=== PATIENT | female | born 1970 | race Two or more races ===

== ENCOUNTER 2016-09-15 08:49 | Emergency (ER) | payer SELFPAY ==
[~2016-09-15] VITALS: Ht 167.6 cm; Wt 91.6 kg
[~2016-09-15 08:49] MED LIST: DULO60CA6 PO; METF500T9 PO; METR500T PO; OMEG1CAP38 PO; PANT40TA5 PO
[2016-09-15 09:01] VITALS: BP 150/74
[2016-09-15] MEDS ORDERED: PROMETH/CODEINE 6.25/10MG 5 ML SYRUP. PO ONE (09:15)
[2016-09-15] MEDS ORDERED: IPRATRPIUM/ALBUTEROL 0.5/2.5MG 3 ML NEBU. NEB ONE (09:15)
[2016-09-15] MEDS ORDERED: BENZONATATE 100 MG CAPSULE. PO ONE (09:15)
[2016-09-15] MEDS ORDERED: PREDNISONE 20 MG TABLET PO ONE (09:15)
--- NOTE | 2016-09-15 09:17 | PHYS DOC ---
Past Medical History Past Medical History: Diabetes-Type II, Fibromyalgia Past Surgical History: , Tubal ligation, Other Additional Past Surgical Histo: left ankle fx Alcohol Use: None Drug Use: None Adult General Chief Complaint Chief Complaint: COUGH HPI HPI Patient is a 46 year old female with history of diabetes type 2, fibromyalgia, knee replacement, who presents today with a productive cough for 1 month. Patient denies any chest pain or shortness of breath. Denies any fever. Denies any history of smoking. She states she did have influenza vaccine this season. Patient is Khmer-speaking and interpretation is provided by the registered nurses as well as patient's son PCP Review of Systems Review of Systems Constitutional: See history of present illness Eyes: Denies change in visual acuity, redness, or eye pain [] HENT: Denies nasal congestion or sore throat [] Respiratory: Productive cough Cardiovascular: No additional information not addressed in HPI [] GI: Denies abdominal pain, nausea, vomiting, bloody stools or diarrhea [] : Denies dysuria or hematuria [] Musculoskeletal: Denies back pain or joint pain [] Integument: Denies rash or skin lesions [] Neurologic: Denies headache, focal weakness or sensory changes [] Endocrine: Denies polyuria or polydipsia [] Current Medications Current Medications Current Medications Medications (Trade) Dose Ordered Sig/Sarkis Start Time Stop Time Status Last Admin Dose Admin Albuterol/ Ipratropium (Duoneb) 3 ml 1X ONCE 09/15/16 09:15 09/15/16 09:16 DC 09/15/16 09:42 3 ML Benzonatate (Tessalon Perle) 100 mg 1X ONCE 09/15/16 09:15 09/15/16 09:16 DC 09/15/16 09:22 100 MG Prednisone (Prednisone) 60 mg 1X ONCE 09/15/16 09:15 09/15/16 09:16 DC 09/15/16 09:22 60 MG Promethazine HCl/ Codeine (Phenergan With Codeine) 5 ml 1X ONCE 09/15/16 09:15 09/15/16 09:16 DC 09/15/16 09:22 5 ML Allergies Allergies Allergies Coded Allergies Type Severity Reaction Last Updated Verified No Known Drug Allergies 08/11/13 No Physical Exam Physical Exam Constitutional: Well developed, well nourished, no acute distress, non-toxic appearance. [] HENT: Normocephalic, atraumatic, bilateral external ears normal, oropharynx moist, no oral exudates, nose normal. [] Eyes: PERRLA, EOMI, conjunctiva normal, no discharge. [] Neck: Normal range of motion, no tenderness, supple, no stridor. [] Cardiovascular:Heart rate regular rhythm, no murmur [] Lungs & Thorax: Bilateral breath sounds clear to auscultation, patient is actively coughing in the ED Abdomen: Bowel sounds normal, soft, no tenderness, no masses, no pulsatile masses. [] Skin: Warm, dry, no erythema, no rash. [] Back: No tenderness, no CVA tenderness. [] Extremities: No tenderness, no cyanosis, no clubbing, ROM intact, no edema. [] Neurologic: Alert and oriented X 3, normal motor function, normal sensory function, no focal deficits noted. [] Psychologic: Affect normal, judgement normal, mood normal. [] Current Patient Data Vital Signs Vital Signs Date Time Temp Pulse Resp B/P Pulse Ox O2 Delivery O2 Flow Rate FiO2 09/15/16 09:42 Room Air 09/15/16 09:01 97.9 89 20 98 97.9 EKG EKG [] Radiology/Procedures Radiology/Procedures [] Course & Med Decision Making Course & Med Decision Making Pertinent Labs and Imaging studies reviewed. (See chart for details) Patient is in the ED with complaints of a productive cough intermittently for 1 month. She is not a smoker. She was given a DuoNeb treatment, prednisone, and Tessalon Perles. Her lungs have cleared up in the ED, she is no longer coughing. Chest x-ray interpreted by radiologist is negative for any acute findings, patient's symptoms are probably from acute bronchitis. She was discharged with albuterol inhaler, prednisone for 4 more days, Tessalon Perles and Z-Morales. She is to follow-up with her own PCP in the next 7 days. Dragon Disclaimer Dragon Disclaimer This electronic medical record was generated, in whole or in part, using a voice recognition dictation system. Departure Departure Impression: Primary Impression: Acute bronchitis Disposition: HOME, SELF-CARE Condition: STABLE Referrals: FORREST WILDE DO (PCP) Patient Instructions: Acute Bronchitis Additional Instructions: You were seen for acute bronchitis. Take the prescribed medicines as ordered. Follow-up with your doctor in the next 7 days, come back to the ED at any point symptoms worsen. Scripts Prednisone 50 Mg Tablet1 Tab PO DAILY #5 TAB Prov:MONICA TRACY APRN 09/15/16 Benzonatate (Tessalon Perle)100 Mg Capsule1 Cap PO TID #30 CAP Prov:MONICA TRACY APRN 09/15/16 Albuterol Sulfate (Proair Respiclick)90 Mcg Aer.pow.ba1 Puff IH PRN Q6HRS PRN SHORTNESS OF BREATH #1 INHALER Prov:MONICA TRACY APRN 09/15/16 Azithromycin (Zithromax)250 Mg Tablet1 Pkg PO UD #1 PKG Prov:MONICA TRACY APRN 09/15/16 Problem Qualifiers Primary Impression: Acute bronchitis Bronchitis organism: unspecified organism Qualified Code: J20.9 - Acute bronchitis, unspecified MONICA TRACY APRN Sep 15, 2016 09:17
--- NOTE | 2016-09-15 09:39 | RAD ---
Examination: Single frontal view chest History: History of cough, dizziness Comparison: 08/11/2013 Findings: Low lung volumes and technique accentuate heart size and pulmonary vascularity. There is no acute infiltrate or visualized pneumothorax identified. Impression: No acute cardiopulmonary findings.
[2016-09-15] MEDS ORDERED: PROAIR RESPICL90 MCG IH (10:18)
[2016-09-15] MEDS ORDERED: BENZ100C PO (10:18)
[2016-09-15] MEDS ORDERED: PRED50TA PO (10:18)
[2016-09-15] MEDS ORDERED: AZIT250T PO (10:18)
== END 2016-09-15 10:32 | disposition home or self-care (01) ==
LOC: ER 08:49
DX: J20.9 Acute bronchitis, unspecified (principal); E11.9 Type 2 diabetes mellitus without complications; M79.7 Fibromyalgia
CPT/HCPCS: 71010; 94640; 99284; J7512; J7620

== ENCOUNTER 2018-10-25 08:30 | Emergency (ER) | payer SELFPAY ==
[~2018-10-25] VITALS: Ht 167.6 cm; Wt 93.4 kg
[~2018-10-25 08:30] MED LIST changes: +AZIT250T PO; +BENZ100C PO; +PRED50TA PO; +PROAIR RESPICL90 MCG IH
[2018-10-25 09:06] LABS: BILIRUBIN,URINE NEGATIVE (NEG); CLARITY,URINE CLEAR; COLOR,URINE YELLOW; NITRITE,URINE NEGATIVE (NEG); PROTEIN,URINE NEGATIVE (NEG-TRACE); UROBILINOGEN,URINE 0.2 mg/dL (0.2 mg/dL)
[2018-10-25 09:19] LABS: BACTERIA,URINE 0 /HPF (0-FEW); RBC,URINE 20-40 /HPF (0-2); WBC,URINE 0 /HPF (0-4)
[2018-10-25] MEDS ORDERED: IV NORMAL SALINE 1000ML BAG 1,000 ML IV ONE (09:30)
--- NOTE | 2018-10-25 09:44 | PHYS DOC ---
Past Medical History Past Medical History: Asthma, Depression, Diabetes-Type II, Fibromyalgia, High Cholesterol, Pneumonia Past Surgical History: , Tubal ligation, Other Additional Past Surgical Histo: left ankle fx Alcohol Use: None Drug Use: None Adult General Chief Complaint Chief Complaint: VAGINAL BLEEDING HPI HPI 48-year-old female presents to ER via POV for complaints of heavy vaginal bleeding which is been ongoing for the past couple of months. She reports she was seen by her primary care physician on 09/25/18 and had ultrasound and urinalysis done. She reports ultrasound was reported as normal limits and she did have a UTI which she took a 7 day course of antibiotics for. Patient states she was started on or her vaginal bleeding and discussion was had regarding her symptoms being associated with menopause. Patient states this morning around 4 AM she had large amount of vaginal bleeding which soaked her mattress. She reports she has had chills, abdominal pain, nausea, and intermittent dizziness. Patient denies urinary symptoms. She reports she has passed some large clots this morning. Patient denies any vomiting or diarrhea. Patient states she feels fatigued denying any chest pain, palpitations, or shortness of air. Patient states she did have a shake this morning for breakfast denying vomiting episode after drinking that. Patient states she is scheduled in December to see a golf ball molder but with increased bleeding this morning she came to the ER for further evaluation. He shouldn't states she has had vaginal bleeding since her appointment on 09/25/18 however today the bleeding was significantly increased. She reports history of tubal ligation. She denies smoking or alcohol intake. Review of Systems Review of Systems Constitutional: Denies fever- reports chills and fatigue Eyes: Denies change in visual acuity, redness, or eye pain [] HENT: Denies nasal congestion or sore throat [] Respiratory: Denies cough or shortness of breath [] Cardiovascular: Denies CP/palpitations GI: Denies vomiting, bloody stools or diarrhea. Reports diffuse abd pain with increased pain in mid and rt lower abd. Reports intermittent nausea : Denies dysuria or hematuria. Reports vaginal bleeding w/clots Musculoskeletal: Denies back pain or joint pain [] Integument: Denies rash or skin lesions [] Neurologic: Denies headache, focal weakness or sensory changes. Reports dizziness Endocrine: Denies polyuria or polydipsia [] All other systems were reviewed and found to be within normal limits, except as documented in this note. Current Medications Current Medications Current Medications Medications (Trade) Dose Ordered Sig/Sarkis Start Time Stop Time Status Last Admin Dose Admin Iohexol (Omnipaque 300 Mg/ml) 75 ml 1X ONCE 10/25/18 10:15 10/25/18 10:16 DC 10/25/18 10:20 75 ML Sodium Chloride 1,000 ml @ 1,000 mls/hr 1X ONCE 10/25/18 09:30 10/25/18 10:29 DC 10/25/18 09:40 1,000 MLS/HR Allergies Allergies Allergies Coded Allergies Type Severity Reaction Last Updated Verified No Known Drug Allergies 08/11/13 No Physical Exam Physical Exam Constitutional: Well developed, well nourished, no acute distress, non-toxic appearance. [] HENT: Normocephalic, atraumatic, bilateral external ears normal, oropharynx moist, no oral exudates, nose normal. [] Eyes: Pupils equal, conjunctiva normal, no discharge. [] Neck: Normal range of motion, no tenderness, supple, no stridor. [] Cardiovascular: Tachycardic heart rate regular rhythm, no murmur [] Lungs & Thorax: Bilateral breath sounds clear to auscultation- resp. equal/nonlabored Abdomen: Bowel sounds normal, soft/obese, diffuse tenderness in all abd- no distention/rigidity, no masses, no pulsatile masses. [] Skin: Warm, dry, no erythema, no rash. [] Back: No tenderness, no CVA tenderness. [] Extremities: No tenderness, no cyanosis, no clubbing, ROM intact, no edema. [] Neurologic: Alert and oriented X 3, normal motor function, normal sensory function, no focal deficits noted. [] Psychologic: Affect normal, judgement normal, mood normal. [] Pelvic Exam: Leather Coater present Abdomen: Diffuse tenderness in lower abd- no palp. mass External Genitalia: Normal Skin- no rash/lesions Speculum: Normal vaginal mucosa, darker blood in vaginal vault- cervical os closed- no clots/tissue Bimanual: No adnexal masses; No CMT Current Patient Data Vital Signs Vital Signs Date Time Temp Pulse Resp B/P (MAP) Pulse Ox O2 Delivery O2 Flow Rate FiO2 10/25/18 12:00 88 20 137/73 (94) 97 Room Air 10/25/18 08:45 98.4 98.4 Lab Values Laboratory Tests Test 10/25/18 08:40 10/25/18 08:52 10/25/18 09:25 Urine Collection Type Unknown Urine Color Yellow Urine Clarity Clear Urine pH 6.0 Urine Specific [place] <=1.005 Urine Protein Negative mg/dL (NEG-TRACE) Urine Glucose (UA) Negative mg/dL (NEG) Urine Ketones (Stick) Negative mg/dL (NEG) Urine Blood Large (NEG) Urine Nitrite Negative (NEG) Urine Bilirubin Negative (NEG) Urine Urobilinogen Dipstick 0.2 mg/dL (0.2 mg/dL) Urine Leukocyte Esterase Negative (NEG) Urine RBC 20-40 /HPF (0-2) Urine WBC 0 /HPF (0-4) Urine Bacteria 0 /HPF (0-FEW) POC Urine HCG, Qualitative Hcg negative (Negative) White Blood Count 5.3 x10^3/uL (4.0-11.0) Red Blood Count 4.54 x10^6/uL (3.50-5.40) Hemoglobin 13.7 g/dL (12.0-15.5) Hematocrit 40.3 % (36.0-47.0) Mean Corpuscular Volume 89 fL (79-100) Mean Corpuscular Hemoglobin 30 pg (25-35) Mean Corpuscular Hemoglobin Concent 34 g/dL (31-37) Red Cell Distribution Width 13.7 % (11.5-14.5) Platelet Count 248 x10^3/uL (140-400) Neutrophils (%) (Auto) 72 % (31-73) Lymphocytes (%) (Auto) 19 % (24-48) L Monocytes (%) (Auto) 7 % (0-9) Eosinophils (%) (Auto) 2 % (0-3) Basophils (%) (Auto) 0 % (0-3) Neutrophils # (Auto) 3.8 x10^3uL (1.8-7.7) Lymphocytes # (Auto) 1.0 x10^3/uL (1.0-4.8) Monocytes # (Auto) 0.4 x10^3/uL (0.0-1.1) Eosinophils # (Auto) 0.1 x10^3/uL (0.0-0.7) Basophils # (Auto) 0.0 x10^3/uL (0.0-0.2) Sodium Level 133 mmol/L (136-145) L Potassium Level 4.3 mmol/L (3.5-5.1) Chloride Level 101 mmol/L (98-107) Carbon Dioxide Level 19 mmol/L (21-32) L Anion Gap 13 (6-14) Blood Urea Nitrogen 18 mg/dL (7-20) Creatinine 0.6 mg/dL (0.6-1.0) Estimated GFR (Cockcroft-Gault) 106.7 BUN/Creatinine Ratio 30 (6-20) H Glucose Level 171 mg/dL (70-99) H Calcium Level 9.1 mg/dL (8.5-10.1) Magnesium Level 2.3 mg/dL (1.8-2.4) Total Bilirubin 0.5 mg/dL (0.2-1.0) Aspartate Amino Transferase (AST) 28 U/L (15-37) Alanine Aminotransferase (ALT) 34 U/L (14-59) Alkaline Phosphatase 99 U/L (46-116) Troponin I Quantitative < 0.017 ng/mL (0.000-0.055) Total Protein 7.8 g/dL (6.4-8.2) Albumin 3.8 g/dL (3.4-5.0) Albumin/Globulin Ratio 1.0 (1.0-1.7) Laboratory Tests 10/25/18 09:25 Laboratory Tests 10/25/18 09:25 EKG EKG EKG obtained 10/25/18 at [address] Rowe Sinus rhythm Rt axis deviation Rate 94 No STEMI Radiology/Procedures Radiology/Procedures PROCEDURE: CT ABD PELV W/ IV CONTRST ONLY CT ABD PELV W/ IV CONTRST ONLY Indication: ABD RODGERS VAGINAL BLEEDING INJ 75ML OMNI 300 PREV SENT Exposure: One or more of the following individualized dose reduction techniques were utilized for this examination: 1. Automated exposure control 2. Adjustment of the mA and/or kV according to patient size 3. Use of iterative reconstruction technique. Technique: Intravenous contrast was given. No oral contrast per request. Comparison with July 17, 2015 FINDINGS: Lung bases are clear. Liver is hypodense compatible with steatosis. Spleen not enlarged. Pancreas unremarkable. No adrenal mass. Kidneys demonstrate symmetric enhancement without focal mass or hydronephrosis. No calcified gallstone. No aortic aneurysm. No significant lymph node enlargement. No significant small bowel distention. No evidence of acute colitis. Appendix appears normal. No evidence of pelvic mass. Urinary bladder demonstrates no significant definite wall thickening. Vertebral body height and alignment are intact with very mild degenerative spurring. Slight scoliosis. IMPRESSION: 1. Hepatic steatosis. 2. No acute findings in the abdomen or pelvis. Electronically signed by: Gregg Fernandez MD (10/25/2018 10:36 AM) [id number] DICTATED and SIGNED BY: GREGG FERNANDEZ MD DATE: 10/25/18 1036 Course & Med Decision Making Course & Med Decision Making Pertinent Labs and Imaging studies reviewed. (See chart for details) 1115: Discussed patient's test results with her via translation phone- H&H stable at 13.7/40.3 EKG with no acute ST elevation/STEMI and troponin <0.017; UA lg blood/neg nitrates and leuks- neg. UCG. Patient reports following IV fluids her symptoms have improved. At this time patient is nontoxic in appearance and in no visible distress heart rate has improved to 93 with blood pressure 147/76. Discussed with improved symptoms and stable labs plans were for home discharge with patient to continue prescribed medications as directed and will prescribe Naproxen for pain/bleeding. She is comfortable with home discharge plan as dis cussed. Advised patient to follow-up with her primary care physician with concerns and attempt to get earlier appointment with golf ball molder . Education provided on signs and symptoms to return to ER for. Patient denies any increase in vaginal bleeding since arriving to ER. Dragon Disclaimer Dragon Disclaimer This electronic medical record was generated, in whole or in part, using a voice recognition dictation system. Departure Departure Impression: Primary Impression: Abdominal pain Additional Impression: Menorrhagia Disposition: HOME, SELF-CARE Condition: STABLE Referrals: FORREST WILDE DO (PCP) Patient Instructions: Abdominal Pain, Menorrhagia Additional Instructions: Drink plenty of fluids daily. Continue medications as prescribed. You can try and get earlier appointment with your golf ball molder. If you are having excessive vaginal bleeding or abdominal pain you can take the prescribed naproxen as directed. You can also follow-up with your primary care physician for reevaluation with concerns or worsening symptoms. Scripts Naproxen (NAPROXEN) 500 Mg Tablet 1 TAB PO BID PRN for PAIN, #20 TAB 0 Refills Prov: VADIM VALENTINE APRN 10/25/18 Problem Qualifiers VADIM VALENTINE APRN Oct 25, 2018 09:44
[2018-10-25 09:50] LABS: BASO % 0 % (0-3); EOS # 0.1 x10^3/uL (0.0-0.7); EOS % 2 % (0-3); HEMATOCRIT 40.3 % (36.0-47.0); HEMOGLOBIN 13.7 g/dL (12.0-15.5); LYMPH % 19 % (24-48); MEAN CORPUSCULAR HEMOGLOBIN 30 pg (25-35); MEAN CORPUSCULAR HGB CONC 34 g/dL (31-37); MEAN CORPUSCULAR VOLUME 89 fL (79-100); MONO # 0.4 x10^3/uL (0.0-1.1); MONO % 7 % (0-9); NEUT # 3.8 x10^3uL (1.8-7.7); NEUT % 72 % (31-73); PLATELET COUNT 248 x10^3/uL (140-400); RED BLOOD COUNT 4.54 x10^6/uL (3.50-5.40); RED CELL DISTRIBUTION WIDTH 13.7 % (11.5-14.5); WHITE BLOOD COUNT 5.3 x10^3/uL (4.0-11.0)
[2018-10-25 09:55] LABS: CALCIUM 9.1 mg/dL (8.5-10.1); CREATININE 0.6 mg/dL (0.6-1.0); GFR 106.7; POTASSIUM 4.3 mmol/L (3.5-5.1)
[2018-10-25 10:01] LABS: ALBUMIN 3.8 g/dL (3.4-5.0); MAGNESIUM 2.3 mg/dL (1.8-2.4); TOTAL BILIRUBIN 0.5 mg/dL (0.2-1.0); TOTAL PROTEIN 7.8 g/dL (6.4-8.2)
[2018-10-25] MEDS ORDERED: IOHEXOL 300 MG/ML 100ML VIAL. IV ONE (10:15)
--- NOTE | 2018-10-25 10:39 | RAD ---
CT ABD PELV W/ IV CONTRST ONLY Indication: ABD RODGERS VAGINAL BLEEDING INJ 75ML OMNI 300 PREV SENT Exposure: One or more of the following individualized dose reduction techniques were utilized for this examination: 1. Automated exposure control 2. Adjustment of the mA and/or kV according to patient size 3. Use of iterative reconstruction technique. Technique: Intravenous contrast was given. No oral contrast per request. Comparison with July 17, 2015 FINDINGS: Lung bases are clear. Liver is hypodense compatible with steatosis. Spleen not enlarged. Pancreas unremarkable. No adrenal mass. Kidneys demonstrate symmetric enhancement without focal mass or hydronephrosis. No calcified gallstone. No aortic aneurysm. No significant lymph node enlargement. No significant small bowel distention. No evidence of acute colitis. Appendix appears normal. No evidence of pelvic mass. Urinary bladder demonstrates no significant definite wall thickening. Vertebral body height and alignment are intact with very mild degenerative spurring. Slight scoliosis. IMPRESSION: 1. Hepatic steatosis. 2. No acute findings in the abdomen or pelvis. Electronically signed by: Gregg Fernandez MD (10/25/2018 10:36 AM) [facility]
--- NOTE | 2018-10-25 10:56 | EKG ---
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
[2018-10-25] MEDS ORDERED: NAPR-514 PO (11:32)
[2018-10-25 12:00] VITALS: BP 137/73
[2018-10-29 14:15] LABS: GC PROBE Negative (Negative)
== END 2018-10-25 12:08 | disposition home or self-care (01) ==
LOC: ER 08:30
DX: N92.0 Excessive and frequent menstruation with regular cycle (principal); R10.84 Generalized abdominal pain; R11.0 Nausea; R00.0 Tachycardia, unspecified; R42 Dizziness and giddiness; R53.83 Other fatigue; F41.9 Anxiety disorder, unspecified; F32.9 Major depressive disorder, single episode, unspecified; E11.9 Type 2 diabetes mellitus without complications; E78.00 Pure hypercholesterolemia, unspecified; Z98.890 Other specified postprocedural states; Z98.51 Tubal ligation status
CPT/HCPCS: 36415; 74177; 80053; 81001; 81025; 83735; 84484; 85025; 87491; 87591; 93005; 96360; 99285; J7030; Q9967; 99284

== ENCOUNTER 2019-07-20 09:11 | Emergency (ER) | payer SELFPAY ==
[~2019-07-20] VITALS: Ht 167.6 cm; Wt 77.1 kg
[~2019-07-20 09:11] MED LIST changes: +METF500T11 PO; -METF500T9 PO; +NAPR-514 PO; -PANT40TA5 PO; +PANT40TA77 PO
[2019-07-20 09:18] VITALS: BP 132/78
[2019-07-20 09:37] LABS: BILIRUBIN,URINE NEGATIVE (NEG); CLARITY,URINE CLEAR; COLOR,URINE YELLOW; NITRITE,URINE NEGATIVE (NEG); PH,URINE 7.5; PROTEIN,URINE NEGATIVE (NEG-TRACE); UROBILINOGEN,URINE 0.2 mg/dL (0.2 mg/dL)
--- NOTE | 2019-07-20 09:46 | PHYS DOC ---
Past Medical History Past Medical History: Anemia, Asthma, Depression, Diabetes-Type II, Fibro myalgia, High Cholesterol, Hypertension, Pneumonia Past Surgical History: , Tubal ligation, Other Additional Past Surgical Histo: left ankle fx Alcohol Use: None Drug Use: None Adult General Chief Complaint Chief Complaint: PAIN ON URINATION HPI HPI Patient is a 48 year old female who presents with right flank pain in burning with urination for 1 week. She denies fever, nausea, vomiting, abdominal pain, headache, dizziness, CP, SOA. Patient states she's also had a sore throat for the last week. She's been taking Tylenol with her last dose of Tylenol last night. She states she also gets allergy shots. She rates her throat pain a 6 out of 10. Review of Systems Review of Systems HENT: Denies nasal congestion. +sore throat [] : dysuria or denies hematuria [] Musculoskeletal: Right lower back pain or denies joint pain [] All other systems were reviewed and found to be within normal limits, except as documented in this note. Allergies Allergies Allergies Coded Allergies Type Severity Reaction Last Updated Verified No Known Drug Allergies 08/11/13 No Physical Exam Physical Exam Constitutional: Well developed, well nourished, no acute distress, non-toxic appearance. [] HENT: Normocephalic, atraumatic, bilateral external ears normal, oropharynx moist, no oral exudates, nose normal. [] Eyes: PERRLA, EOMI, conjunctiva normal, no discharge. [] Neck: Normal range of motion, no tenderness, supple, no stridor. [] Cardiovascular:Heart rate regular rhythm, no murmur [] Lungs & Thorax: Bilateral breath sounds clear to auscultation [] Abdomen: Bowel sounds normal, soft, no tenderness, no masses, no pulsatile masses. [] Skin: Warm, dry, no erythema, no rash. [] Back: No tenderness, Right CVA tenderness. [] Extremities: No tenderness, no cyanosis, no clubbing, ROM intact, no edema. [] Neurologic: Alert and oriented X 3, normal motor function, normal sensory function, no focal deficits noted. [] Psychologic: Affect normal, judgement normal, mood normal. [] Current Patient Data Vital Signs Vital Signs Date Time Temp Pulse Resp B/P (MAP) Pulse Ox O2 Delivery O2 Flow Rate FiO2 1/18/20 09:18 98.4 76 17 132/78 (96) 99 Room Air 98.4 Lab Values Laboratory Tests Test 07/20/19 09:24 07/20/19 09:25 07/20/19 10:08 POC Urine HCG, Qualitative Hcg negative (Negative) Urine Collection Type Unknown Urine Color Yellow Urine Clarity Clear Urine pH 7.5 Urine Specific [place] <=1.005 Urine Protein Negative mg/dL (NEG-TRACE) Urine Glucose (UA) Negative mg/dL (NEG) Urine Ketones (Stick) Negative mg/dL (NEG) Urine Blood Negative (NEG) Urine Nitrite Negative (NEG) Urine Bilirubin Negative (NEG) Urine Urobilinogen Dipstick 0.2 mg/dL (0.2 mg/dL) Urine Leukocyte Esterase Trace (NEG) Urine RBC 0 /HPF (0-2) Urine WBC 0 /HPF (0-4) Urine Squamous Epithelial Cells Occ /LPF Urine Bacteria 0 /HPF (0-FEW) Group A Streptococcus Rapid Negative (NEGATIVE) EKG EKG [] Radiology/Procedures Radiology/Procedures [] Course & Med Decision Making Course & Med Decision Making Throat is pink without exudates or swelling. Lungs are clear to auscultation all lobes. Right CVA tenderness. Abdomen soft and nontender. Vital signs wnl. Alert and Oriented. Speak in full clear sentences. Ambulatory with steady gait. Denies any nasal congestion or other cold symptoms. Patient states she is eating and drinking appropriately. Dragon Disclaimer Dragon Disclaimer This electronic medical record was generated, in whole or in part, using a voice recognition dictation system. Departure Departure Impression: Primary Impression: Dysuria Additional Impression: Throat pain in adult Disposition: 01 HOME, SELF-CARE Condition: STABLE Referrals: FORREST WILDE DO (PCP) Patient Instructions: Dysuria-Brief, Sore Throat, [id number] Additional Instructions: Follow-up with her primary care provider. Take plenty of fluids. Take ibuprofen for your pain. Use throat drops and chlorseptic spray for your throat pain. Scripts Cephalexin (KEFLEX) 500 Mg Capsule 1 CAP PO BID for 7 Days, #14 CAP 0 Refills Prov: AMINA RIGGS APRN 07/20/19 Problem Qualifiers AMINA RIGGS APRN Jul 20, 2019 09:46
[2019-07-20 09:54] LABS: BACTERIA,URINE 0 /HPF (0-FEW); RBC,URINE 0 /HPF (0-2); SQUAMOUS EPITHELIAL CELL,UR OCC /LPF; WBC,URINE 0 /HPF (0-4)
[2019-07-20] MEDS ORDERED: CEPH-264 PO (10:18)
== END 2019-07-20 11:32 | disposition home or self-care (01) ==
LOC: ER 09:11
DX: J02.9 Acute pharyngitis, unspecified (principal); R30.0 Dysuria; M54.5 Low back pain; J45.909 Unspecified asthma, uncomplicated; E11.9 Type 2 diabetes mellitus without complications; M79.7 Fibromyalgia; E78.00 Pure hypercholesterolemia, unspecified; I10 Essential (primary) hypertension; Z98.51 Tubal ligation status; Z98.890 Other specified postprocedural states
CPT/HCPCS: 81001; 81025; 87070; 87086; 87880; 99284

== ENCOUNTER 2019-07-23 13:36 | Emergency (ER) | payer SELFPAY ==
[~2019-07-23] VITALS: Ht 167.6 cm; Wt 77.2 kg
[~2019-07-23 13:36] MED LIST changes: +CEPH-264 PO
[2019-07-23] MEDS ORDERED: IV NORMAL SALINE 1000ML BAG 1,000 ML IV SCH (14:10)
[2019-07-23] MEDS ORDERED: ONDANSETRON PF 4 MG/2 ML VIAL. IVP ONE (14:15)
[2019-07-23] MEDS ORDERED: IPRATRPIUM/ALBUTEROL 0.5/2.5MG 3 ML NEBU. NEB ONE (14:15)
--- NOTE | 2019-07-23 14:18 | EKG ---
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
[2019-07-23 14:23] LABS: BASO % 1 % (0-3); EOS % 0 % (0-3); HEMATOCRIT 34.6 % (36.0-47.0); HEMOGLOBIN 11.4 g/dL (12.0-15.5); LYMPH # 1.6 x10^3/uL (1.0-4.8); LYMPH % 30 % (24-48); MEAN CORPUSCULAR HEMOGLOBIN 24 pg (25-35); MEAN CORPUSCULAR HGB CONC 33 g/dL (31-37); MEAN CORPUSCULAR VOLUME 72 fL (79-100); MONO # 0.4 x10^3/uL (0.0-1.1); MONO % 7 % (0-9); NEUT # 3.4 x10^3/uL (1.8-7.7); NEUT % 62 % (31-73); PLATELET COUNT 275 x10^3/uL (140-400); RED BLOOD COUNT 4.77 x10^6/uL (3.50-5.40); RED CELL DISTRIBUTION WIDTH 18.7 % (11.5-14.5); WHITE BLOOD COUNT 5.5 x10^3/uL (4.0-11.0)
--- NOTE | 2019-07-23 14:23 | PHYS DOC ---
Past Medical History Past Medical History: Anemia, Asthma, Depression, Diabetes-Type II, Fibromyalgia, High Cholesterol, Hypertension, Pneumonia Past Surgical History: , Tubal ligation, Other Additional Past Surgical Histo: left ankle fx Alcohol Use: None Drug Use: None Adult General Chief Complaint Chief Complaint: SHORTNESS OF BREATH [facility] HPI Patient is a 48 year old Danish speaking female with history of hypertension, dyslipidemia, diabetes mellitus, anemia, anxiety and depression, asthma, pneumonia who presents with complaint of cough and shortness of breath and dizziness and chest pain. Patient complaining of productive cough with yellow sputum for the last 2 weeks associated with sore throat without fever and nasal congestion. Patient states she had back pain and was seen in this emergency room 3 days ago and treated with diagnosis of UTI with Keflex. Patient complaining of positional dizziness since this morning associated with nausea without focal neuro deficit and headache. Patient complaining of intermittent episodes of substernal sharp chest pain since noon today is about 30 seconds and repeated every few minutes associated with shortness of breath, dizziness, palpitation, nausea. Patient rated her pain 10 over 10. Review of Systems Review of Systems Constitutional: Denies fever or chills [] Eyes: Denies change in visual acuity, redness, or eye pain [] HENT: Denies nasal congestion, reports sore throat [] Respiratory: Cough and shortness of breath Cardiovascular: No additional information not addressed in HPI [] GI: Denies abdominal pain, vomiting, bloody stools or diarrhea, reports nausea : Denies dysuria or hematuria [] Musculoskeletal: Denies back pain or joint pain [] Integument: Denies rash or skin lesions [] Neurologic: Denies headache, focal weakness or sensory changes [] Endocrine: Denies polyuria or polydipsia [] All other systems were reviewed and found to be within normal limits, except as documented in this note. Current Medications Current Medications Current Medications Medications (Trade) Dose Ordered Sig/Sarkis Start Time Stop Time Status Last Admin Dose Admin Albuterol/ Ipratropium (Duoneb) 3 ml 1X ONCE 07/23/19 14:15 07/23/19 14:18 DC 07/23/19 14:58 3 ML Ondansetron HCl (Zofran) 4 mg 1X ONCE 07/23/19 14:15 07/23/19 14:17 DC 07/23/19 14:19 4 MG Sodium Chloride 1,000 ml @ 1,000 mls/hr Q1H 07/23/19 14:10 07/23/19 15:09 DC 07/23/19 14:20 1,000 MLS/HR Allergies Allergies Allergies Coded Allergies Type Severity Reaction Last Updated Verified No Known Drug Allergies 08/11/13 No Physical Exam Physical Exam Constitutional: Well nourished, mild distress, non-toxic appearance. [] HENT: Normocephalic, atraumatic, bilateral external ears normal, oropharynx moist, no oral exudates, nose normal. [] Eyes: PERRLA, EOMI, conjunctiva normal, no discharge. [] Neck: Normal range of motion, no tenderness, supple, no stridor. [] Cardiovascular:Heart rate regular rhythm, no murmur [] Lungs & Thorax: Bilateral breath sounds clear to auscultation [] Abdomen: Bowel sounds normal, soft, no tenderness, no masses, no pulsatile masses. [] Skin: Warm, dry, no erythema, no rash. [] Back: No tenderness, no CVA tenderness. [] Extremities: No tenderness, no cyanosis, no clubbing, ROM intact, no edema. [] Neurologic: Alert and oriented X 3, normal motor function, normal sensory function, no focal deficits noted. [] Psychologic: Affect depressed, mood normal. [] Current Patient Data Vital Signs Vital Signs Date Time Temp Pulse Resp B/P (MAP) Pulse Ox O2 Delivery O2 Flow Rate FiO2 07/23/19 15:00 100 Room Air 07/23/19 13:45 97.8 67 24 169/76 (107) 97.8 Lab Values Laboratory Tests Test 07/23/19 13:45 07/23/19 14:10 Urine Collection Type Unknown Urine Color Yellow Urine Clarity Clear Urine pH 7.5 Urine Specific [place] <=1.005 Urine Protein Negative mg/dL (NEG-TRACE) Urine Glucose (UA) Negative mg/dL (NEG) Urine Ketones (Stick) Trace mg/dL (NEG) Urine Blood Negative (NEG) Urine Nitrite Negative (NEG) Urine Bilirubin Negative (NEG) Urine Urobilinogen Dipstick 0.2 mg/dL (0.2 mg/dL) Urine Leukocyte Esterase Negative (NEG) Urine RBC 0 /HPF (0-2) Urine WBC 0 /HPF (0-4) Urine Squamous Epithelial Cells Occ /LPF Urine Bacteria 0 /HPF (0-FEW) White Blood Count 5.5 x10^3/uL (4.0-11.0) Red Blood Count 4.77 x10^6/uL (3.50-5.40) Hemoglobin 11.4 g/dL (12.0-15.5) L Hematocrit 34.6 % (36.0-47.0) L Mean Corpuscular Volume 72 fL (79-100) L Mean Corpuscular Hemoglobin 24 pg (25-35) L Mean Corpuscular Hemoglobin Concent 33 g/dL (31-37) Red Cell Distribution Width 18.7 % (11.5-14.5) H Platelet Count 275 x10^3/uL (140-400) Neutrophils (%) (Auto) 62 % (31-73) Lymphocytes (%) (Auto) 30 % (24-48) Monocytes (%) (Auto) 7 % (0-9) Eosinophils (%) (Auto) 0 % (0-3) Basophils (%) (Auto) 1 % (0-3) Neutrophils # (Auto) 3.4 x10^3/uL (1.8-7.7) Lymphocytes # (Auto) 1.6 x10^3/uL (1.0-4.8) Monocytes # (Auto) 0.4 x10^3/uL (0.0-1.1) Eosinophils # (Auto) 0.0 x10^3/uL (0.0-0.7) Basophils # (Auto) 0.0 x10^3/uL (0.0-0.2) Prothrombin Time 13.1 SEC (11.7-14.0) Prothrombin Time INR 1.0 (0.8-1.1) Sodium Level 141 mmol/L (136-145) Potassium Level 3.6 mmol/L (3.5-5.1) Chloride Level 104 mmol/L (98-107) Carbon Dioxide Level 22 mmol/L (21-32) Anion Gap 15 (6-14) H Blood Urea Nitrogen 12 mg/dL (7-20) Creatinine 0.5 mg/dL (0.6-1.0) L Estimated GFR (Cockcroft-Gault) 131.7 BUN/Creatinine Ratio 24 (6-20) H Glucose Level 142 mg/dL (70-99) H Lactic Acid Level 1.5 mmol/L (0.4-2.0) Calcium Level 9.4 mg/dL (8.5-10.1) Magnesium Level 2.2 mg/dL (1.8-2.4) Total Bilirubin 0.3 mg/dL (0.2-1.0) Aspartate Amino Transferase (AST) 13 U/L (15-37) L Alanine Aminotransferase (ALT) 18 U/L (14-59) Alkaline Phosphatase 80 U/L (46-116) Creatine Kinase 32 U/L (26-192) Troponin I Quantitative < 0.017 ng/mL (0.000-0.055) GW-Tps-Q-Type Natriuretic Peptide < 5 pg/mL (0-124) Total Protein 7.0 g/dL (6.4-8.2) Albumin 3.8 g/dL (3.4-5.0) Albumin/Globulin Ratio 1.2 (1.0-1.7) Lipase 194 U/L (73-393) Laboratory Tests 07/23/19 14:10 Laboratory Tests 07/23/19 14:10 EKG EKG EKG interpreted by me. EKG at 1350 showed normal sinus rhythm at rate of 67, left fourth axis, normal MS and QT intervals, no acute ST and T-wave the patient. Radiology/Procedures Radiology/Procedures [][facility] [address] [place] [address] IMAGING REPORT Signed PATIENT: RENETTA GALECOUNT: [id number] : 1970 LOCATION: ER AGE: 48 SEX: F EXAM STATUS: REG ER ORD. PHYSICIAN: ESTEBAN LUIS MD REASON: cough for 2 weeks PROCEDURE: CHEST PA & LATERAL CHEST PA LATERAL History: Cough for 2 weeks Comparison: 09/15/2016 AP view of the chest. Findings: Frontal and lateral views of the chest were obtained. The cardiomediastinal silhouette is normal. Pulmonary vasculature is normal. The lungs are clear. No pleural effusion or pneumothorax is seen. There is no acute bone abnormality. IMPRESSION: No acute cardiopulmonary process. Electronically signed by: Hipolito Srivastava MD (07/23/2019 2:59 PM) [facility] DICTATED and SIGNED BY: HIPOLITO SRIVASTAVA MD DATE: 07/23/19 1459 [facility] [address] [place] [address] IMAGING REPORT Signed PATIENT: RENETTA GALECOUNT: [id number] : 1970 LOCATION: ER AGE: 48 SEX: F EXAM STATUS: REG ER ORD. PHYSICIAN: ESTEBAN LUIS MD REASON: dizziness and chest pain PROCEDURE: CT HEAD WO CONTRAST Examination: CT HEAD WO CONTRAST History: Dizziness and chest pain Comparison/Correlation: 08/11/2013 CT head without contrast Findings: Axial images of the head were obtained without contrast. Ventricles are normal size. No intracranial hemorrhage, midline shift, or mass effect. Bony structures are unremarkable. Impression: No suspicious process. PQRS Compliance Statement: One or more of the following individualized dose reduction techniques were utilized for this examination: 1. Automated exposure control 2. Adjustment of the mA and/or kV according to patient size 3. Use of iterative reconstruction technique Electronically signed by: Hipolito Srivastava MD (07/23/2019 2:51 PM) [facility] DICTATED and SIGNED BY: HIPOLITO SRIVASTAVA MD DATE: 07/23/19 1451 Course & Med Decision Making Course & Med Decision Making Pertinent Labs and Imaging studies reviewed. (See chart for details) Evaluation of patient in ER showed 48-year-old female patient with heart score of 2 with multiple complaints including chest pain, dizziness, cough and congestion. Patient had unremarkable physical exam except for depression. EKG, chest x-ray, labs was unremarkable except for mild anemia. Plan discharge patient home with diagnose of bronchitis and musculoskeletal pain currently taking several psychiatric medication and was advised to continue current medication. Patient currently taking Keflex for UTI and was advised to continue antibiotic for bronchitis. I've spoken with the patient and/or caregivers. I've explained the patient's condition, diagnosis and treatment plan based on information available to me at this time. I've answered the patient's and/or caregivers questions and addressed any concerns. The patient and/or caregivers have a good understanding the patient's diagnosis, condition and treatment plan as can be expected at this point. Vital signs have been stabilized. The patient's condition is stable for discharge from the emergency department. The patient will pursue further outpatient evaluation with her primary care provider or other designated consulting physician as outlined in the discharge instructions. Patient and/or caregivers are agreeable to this plan of care and follow-up instructions have been explained in detail. The patient and/or caregivers have received these instructions in written format and expressed understanding of these discharge instructions. The patient and her caregivers are aware that if any significant change in condition or worsening of symptoms should prompt him to immediately return to this of the closest emergency department. If an emergent department is not readily available I would encourage him to call 911. Karol Disclaimer Karol Disclaimer This electronic medical record was generated, in whole or in part, using a voice recognition dictation system. Departure Departure Impression: Primary Impression: Acute bronchitis Additional Impressions: Anxiety about health Dizziness Non-cardiac chest pain Disposition: HOME, SELF-CARE (at 1609) Condition: IMPROVED Referrals: FORREST WILDE DO (PCP) Patient Instructions: Acute Bronchitis, Anxiety and Panic Attacks, Dizziness, Musculoskeletal Pain Additional Instructions: Drink plenty of liquids Follow-up with your primary care physician in 3-5 days Return to ER if not getting better Continue current medication Thank you for visiting [facility]. We appreciate you trusting us with your care. If any additional problems come up don't hesitate to return to visit us. Please follow up with your primary care provider so they can plan additional care if needed and know about the problem that you had. If symptoms worsen come back to the Emergency Department. Any concerning symptoms that start such as chest pain, shortness of air, weakness or numbness on one side of the body, running high fevers or any other concerning symptoms return to the ER. Scripts Albuterol Sulfate (VENTOLIN HFA INHALER) 18 Gm Hfa.aer.ad 2 PUFF INH QID for FOR ASTHMA, #1 INHALER 0 Refills Prov: ESTEBAN LUIS MD 07/23/19 Benzonatate (TESSALON PERLE) 100 Mg Capsule 1 CAP PO TID for cough, #21 CAP Prov: ESTEBAN LUIS MD 07/23/19 Methylprednisolone (MEDROL) 4 Mg Tab.ds.pk 1 PKG PO UD for inflammation, #1 PKG Prov: ESTEBAN LUIS MD 07/23/19 Critical Care Time Critical care time was 60 minutes exclusive of procedures. Problem Qualifiers Primary Impression: Acute bronchitis Bronchitis organism: unspecified organism Qualified Codes: J20.9 - Acute bronchitis, unspecified ESTEBAN LUIS MD Jul 23, 2019 14:23
[2019-07-23 14:24] LABS: BILIRUBIN,URINE NEGATIVE (NEG); CLARITY,URINE CLEAR; COLOR,URINE YELLOW; NITRITE,URINE NEGATIVE (NEG); PH,URINE 7.5; PROTEIN,URINE NEGATIVE (NEG-TRACE); UROBILINOGEN,URINE 0.2 mg/dL (0.2 mg/dL)
[2019-07-23 14:32] LABS: PROTHROMBIN TIME PATIENT 13.1 SEC (11.7-14.0)
[2019-07-23 14:32] LABS: BACTERIA,URINE 0 /HPF (0-FEW); RBC,URINE 0 /HPF (0-2); WBC,URINE 0 /HPF (0-4)
[2019-07-23 14:33] LABS: SQUAMOUS EPITHELIAL CELL,UR OCC /LPF
[2019-07-23 14:33] LABS: CALCIUM 9.4 mg/dL (8.5-10.1); CREATININE 0.5 mg/dL (0.6-1.0); GFR 131.7; POTASSIUM 3.6 mmol/L (3.5-5.1)
[2019-07-23 14:46] LABS: ALBUMIN 3.8 g/dL (3.4-5.0); ALBUMIN/GLOBULIN RATIO 1.2 (1.0-1.7); MAGNESIUM 2.2 mg/dL (1.8-2.4); TOTAL BILIRUBIN 0.3 mg/dL (0.2-1.0)
--- NOTE | 2019-07-23 14:54 | RAD ---
Examination: CT HEAD WO CONTRAST History: Dizziness and chest pain Comparison/Correlation: 08/11/2013 CT head without contrast Findings: Axial images of the head were obtained without contrast. Ventricles are normal size. No intracranial hemorrhage, midline shift, or mass effect. Bony structures are unremarkable. Impression: No suspicious process. PQRS Compliance Statement: One or more of the following individualized dose reduction techniques were utilized for this examination: 1. Automated exposure control 2. Adjustment of the mA and/or kV according to patient size 3. Use of iterative reconstruction technique Electronically signed by: Hipolito Valle MD (07/23/2019 2:51 PM) [facility]
--- NOTE | 2019-07-23 15:02 | RAD ---
CHEST PA LATERAL History: Cough for 2 weeks Comparison: 09/15/2016 AP view of the chest. Findings: Frontal and lateral views of the chest were obtained. The cardiomediastinal silhouette is normal. Pulmonary vasculature is normal. The lungs are clear. No pleural effusion or pneumothorax is seen. There is no acute bone abnormality. IMPRESSION: No acute cardiopulmonary process. Electronically signed by: Hipolito Valle MD (07/23/2019 2:59 PM) [facility]
[2019-07-23] MEDS ORDERED: METH4TAB2 PO (16:12)
[2019-07-23] MEDS ORDERED: VENTOLIN HFA18 GM INH (16:12)
[2019-07-23] MEDS ORDERED: BENZ100C PO (16:12)
[2019-07-23 16:15] VITALS: BP 154/81
== END 2019-07-23 16:27 | disposition home or self-care (01) ==
LOC: ER 13:36
DX: J20.9 Acute bronchitis, unspecified (principal); F41.9 Anxiety disorder, unspecified; R42 Dizziness and giddiness; R07.89 Other chest pain; J45.909 Unspecified asthma, uncomplicated; E11.9 Type 2 diabetes mellitus without complications; E78.00 Pure hypercholesterolemia, unspecified; I10 Essential (primary) hypertension; Z95.1 Presence of aortocoronary bypass graft; Z98.890 Other specified postprocedural states
CPT/HCPCS: 36415; 70450; 71046; 80053; 81001; 82550; 83605; 83690; 83735; 83880; 84484; 85025; 85610; 93005; 96361; 96374; 99285; J2405; J7030; J7620

== ENCOUNTER 2019-07-28 09:19 | Emergency (ER) | payer SELFPAY ==
[~2019-07-28] VITALS: Ht 170.2 cm; Wt 77.7 kg
[~2019-07-28 09:19] MED LIST changes: +METH4TAB2 PO; +VENTOLIN HFA18 GM INH
--- NOTE | 2019-07-28 10:20 | PHYS DOC ---
Past Medical History Past Medical History: Anemia, Asthma, Depression, Diabetes-Type II, Fibromyalgia, High Cholesterol, Hypertension, Pneumonia Past Surgical History: , Tubal ligation, Other Additional Past Surgical Histo: left ankle fx Alcohol Use: None Drug Use: None Adult General Chief Complaint Chief Complaint: FLANK PAIN HPI HPI Patient is a 48 year old [female] who presents with [right flank pain worsening over the last 2-3 days. Reports she has had some discomfort over the last couple days. States she had recently been seen here for UTI, treated with Keflex. Had also been seen here for URI, treated with steroids. Patient reports she has finished her antibiotics, continues to feel. States no fever states no cough, states she has felt a little dizzy for the last couple days. Reports she had taken 200mg ibuprofen first thing morning, states her pain continues on right side. Denies any diarrhea.] Review of Systems Review of Systems Constitutional: Reports fever and chills[] Eyes: Denies change in visual acuity, redness, or eye pain [] HENT: Denies nasal congestion or sore throat [] Respiratory: Denies cough or shortness of breath [] Cardiovascular: No additional information not addressed in HPI [] GI: Denies abdominal pain, nausea, vomiting, bloody stools or diarrhea reports right flank pain. Denies left flank pain[] : States occasional burning with urination. Denies any hematuria Musculoskeletal: Denies back pain or joint pain [] Integument: Denies rash or skin lesions [] Neurologic: Denies headache, focal weakness or sensory changes [] Endocrine: Denies polyuria or polydipsia [] All other systems were reviewed and found to be within normal limits, except as documented in this note. Current Medications Current Medications Current Medications Medications (Trade) Dose Ordered Sig/Sarkis Start Time Stop Time Status Last Admin Dose Admin Ketorolac Tromethamine (Toradol 15mg Vial) 15 mg 1X ONCE 07/28/19 10:45 07/28/19 10:46 DC 07/28/19 10:59 15 MG Ondansetron HCl (Zofran) 4 mg 1X ONCE 07/28/19 10:45 07/28/19 10:46 DC 07/28/19 10:58 4 MG Sodium Chloride 1,000 ml @ 1,000 mls/hr 1X ONCE 07/28/19 10:45 07/28/19 11:44 DC 07/28/19 10:58 1,000 MLS/HR Allergies Allergies Allergies Coded Allergies Type Severity Reaction Last Updated Verified No Known Drug Allergies 08/11/13 No Physical Exam Physical Exam Constitutional: Well developed, well nourished, no acute distress, non-toxic appearance. [] HENT: Normocephalic, atraumatic, bilateral external ears normal, oropharynx moist, no oral exudates, nose normal. [] Eyes: PERRLA, EOMI, conjunctiva normal, no discharge. [] Neck: Normal range of motion, no tenderness, supple, no stridor. [] Cardiovascular:Heart rate regular rhythm, no murmur [] Lungs & Thorax: Bilateral breath sounds clear to auscultation [] Abdomen: Bowel sounds normal, soft, no tenderness, no masses, no pulsatile masses. [] Skin: Warm, dry, no erythema, no rash. [] Back: No tenderness, right flank CVA tenderness[] Extremities: No tenderness, no cyanosis, no clubbing, ROM intact, no edema. [] Neurologic: Alert and oriented X 3, normal motor function, normal sensory function, no focal deficits noted. [] Psychologic: Affect normal, judgement normal, mood normal. [] Current Patient Data Vital Signs Vital Signs Date Time Temp Pulse Resp B/P (MAP) Pulse Ox O2 Delivery O2 Flow Rate FiO2 07/28/19 12:55 74 14 130/67 (88) 96 Room Air 07/28/19 09:27 98.4 98.4 Lab Values Laboratory Tests Test 07/28/19 09:25 07/28/19 09:42 07/28/19 10:47 Urine Collection Type Void Urine Color Yellow Urine Clarity Clear Urine pH 7.0 Urine Specific [place] <=1.005 Urine Protein Negative mg/dL (NEG-TRACE) Urine Glucose (UA) Negative mg/dL (NEG) Urine Ketones (Stick) Negative mg/dL (NEG) Urine Blood Negative (NEG) Urine Nitrite Negative (NEG) Urine Bilirubin Negative (NEG) Urine Urobilinogen Dipstick 0.2 mg/dL (0.2 mg/dL) Urine Leukocyte Esterase Small (NEG) Urine RBC 0 /HPF (0-2) Urine WBC 0 /HPF (0-4) Urine Squamous Epithelial Cells Few /LPF Urine Bacteria 0 /HPF (0-FEW) POC Urine HCG, Qualitative Hcg negative (Negative) White Blood Count 9.4 x10^3/uL (4.0-11.0) Red Blood Count 4.90 x10^6/uL (3.50-5.40) Hemoglobin 11.5 g/dL (12.0-15.5) L Hematocrit 36.2 % (36.0-47.0) Mean Corpuscular Volume 74 fL (79-100) L Mean Corpuscular Hemoglobin 24 pg (25-35) L Mean Corpuscular Hemoglobin Concent 32 g/dL (31-37) Red Cell Distribution Width 19.4 % (11.5-14.5) H Platelet Count 308 x10^3/uL (140-400) Neutrophils (%) (Auto) 83 % (31-73) H Lymphocytes (%) (Auto) 13 % (24-48) L Monocytes (%) (Auto) 4 % (0-9) Eosinophils (%) (Auto) 0 % (0-3) Basophils (%) (Auto) 0 % (0-3) Neutrophils # (Auto) 7.8 x10^3/uL (1.8-7.7) H Lymphocytes # (Auto) 1.2 x10^3/uL (1.0-4.8) Monocytes # (Auto) 0.4 x10^3/uL (0.0-1.1) Eosinophils # (Auto) 0.0 x10^3/uL (0.0-0.7) Basophils # (Auto) 0.0 x10^3/uL (0.0-0.2) Prothrombin Time 15.9 SEC (11.7-14.0) H Prothrombin Time INR 1.3 (0.8-1.1) H Sodium Level 138 mmol/L (136-145) Potassium Level 4.2 mmol/L (3.5-5.1) Chloride Level 102 mmol/L (98-107) Carbon Dioxide Level 27 mmol/L (21-32) Anion Gap 9 (6-14) Blood Urea Nitrogen 15 mg/dL (7-20) Creatinine 0.5 mg/dL (0.6-1.0) L Estimated GFR (Cockcroft-Gault) 131.7 BUN/Creatinine Ratio 30 (6-20) H Glucose Level 120 mg/dL (70-99) H Lactic Acid Level 1.5 mmol/L (0.4-2.0) Calcium Level 9.2 mg/dL (8.5-10.1) Magnesium Level 2.1 mg/dL (1.8-2.4) Total Bilirubin 0.4 mg/dL (0.2-1.0) Aspartate Amino Transferase (AST) 10 U/L (15-37) L Alanine Aminotransferase (ALT) 17 U/L (14-59) Alkaline Phosphatase 73 U/L (46-116) Total Protein 6.7 g/dL (6.4-8.2) Albumin 3.6 g/dL (3.4-5.0) Albumin/Globulin Ratio 1.2 (1.0-1.7) Laboratory Tests 07/28/19 10:47 Laboratory Tests 07/28/19 10:47 EKG EKG [] Radiology/Procedures Radiology/Procedures []History: Right flank pain Comparison/Correlation: 10/25/2018 CT abdomen and pelvis with contrast Findings: Axial images of the abdomen and pelvis were obtained without contrast. Sagittal and coronal reformatted images were provided. Visualized lung bases are clear. Liver, spleen, pancreas, and adrenal glands are normal. Moderate quantity of debris distends the stomach. Mild right ureteral distention is present. Left collecting system is unremarkable. Urinary bladder is unremarkable. Moderate quantity of stool in colon noted. No extraluminal gas. No obstruction. Appendix is normal. No enlarged abdominal or pelvic lymph nodes. Uterus is unremarkable with intrauterine device in place. No ascites or pelvic free fluid. Bony structures are unremarkable. Impression: Slight distention of the right ureter. No radiopaque collecting system calculus identified. No significant hydronephrosis. No inflammatory process involving the right lower quadrant. Course & Med Decision Making Course & Med Decision Making Pertinent Labs and Imaging studies reviewed. (See chart for details) [Following fluids and medications, patient reports she is feeling better. Discussed patient following up with primary care for further evaluation. We will provide a short course of antibiotics due to ureteral inflammation, potential continued urinary tract due to her symptoms. Follow-up with her primary care as she has scheduled for the next month.] Dragon Disclaimer Dragon Disclaimer This electronic medical record was generated, in whole or in part, using a voice recognition dictation system. Departure Departure Impression: Primary Impression: Flank pain, acute Disposition: 01 HOME, SELF-CARE Condition: STABLE Referrals: FORREST WILDE DO (PCP) Patient Instructions: Flank Pain, [id number] Additional Instructions: Diego hablemos continuar tomando agua. Calvin el antibiotico para los siguiente 7 abbott. Sigue con davey medico primario si todavia tenga lo mismo sintomas en 7-10 days. Puede calvin ibuprofen para dolor, 400 o 600 mg cada 8 horas./ Continue to ensure you are drinking plenty of fluids. Take the antibiotic as prescribed for the next 7 days. Follow-up with her primary care provider if he hasn't seen symptoms for the next 7- 10 days. You may take ibuprofen for pain, for discomfort 400-600 milligrams every 8 hours Scripts Ciprofloxacin Hcl (CIPROFLOXACIN HCL) 500 Mg Tablet 500 MG PO BID for 7 Days, #14 TAB Prov: ASHLEY CAROLINA APRN 07/28/19 ASHLEY CAROLINA APRN Jul 28, 2019 10:20
[2019-07-28 10:38] LABS: BILIRUBIN,URINE NEGATIVE (NEG); CLARITY,URINE CLEAR; COLOR,URINE YELLOW; NITRITE,URINE NEGATIVE (NEG); PROTEIN,URINE NEGATIVE (NEG-TRACE); UROBILINOGEN,URINE 0.2 mg/dL (0.2 mg/dL)
[2019-07-28] MEDS ORDERED: ONDANSETRON PF 4 MG/2 ML VIAL. IV ONE (10:45)
[2019-07-28] MEDS ORDERED: IV NORMAL SALINE 1000ML BAG 1,000 ML IV ONE (10:45)
[2019-07-28] MEDS ORDERED: KETOROLAC 15 MG/ML VIAL. IVP ONE (10:45)
--- NOTE | 2019-07-28 10:51 | RAD ---
Examination: CT ABDOMEN PELVIS WO CONTRAST History: Right flank pain Comparison/Correlation: 10/25/2018 CT abdomen and pelvis with contrast Findings: Axial images of the abdomen and pelvis were obtained without contrast. Sagittal and coronal reformatted images were provided. Visualized lung bases are clear. Liver, spleen, pancreas, and adrenal glands are normal. Moderate quantity of debris distends the stomach. Mild right ureteral distention is present. Left collecting system is unremarkable. Urinary bladder is unremarkable. Moderate quantity of stool in colon noted. No extraluminal gas. No obstruction. Appendix is normal. No enlarged abdominal or pelvic lymph nodes. Uterus is unremarkable with intrauterine device in place. No ascites or pelvic free fluid. Bony structures are unremarkable. Impression: Slight distention of the right ureter. No radiopaque collecting system calculus identified. No significant hydronephrosis. No inflammatory process involving the right lower quadrant. PQRS Compliance Statement: One or more of the following individualized dose reduction techniques were utilized for this examination: 1. Automated exposure control 2. Adjustment of the mA and/or kV according to patient size 3. Use of iterative reconstruction technique Electronically signed by: Hipolito Valle MD (07/28/2019 10:48 AM) [facility]
[2019-07-28 10:56] LABS: BACTERIA,URINE 0 /HPF (0-FEW); RBC,URINE 0 /HPF (0-2); SQUAMOUS EPITHELIAL CELL,UR FEW /LPF; WBC,URINE 0 /HPF (0-4)
[2019-07-28 11:10] LABS: CALCIUM 9.2 mg/dL (8.5-10.1); CREATININE 0.5 mg/dL (0.6-1.0); GFR 131.7; POTASSIUM 4.2 mmol/L (3.5-5.1)
[2019-07-28 11:14] LABS: BASO % 0 % (0-3); EOS % 0 % (0-3); HEMATOCRIT 36.2 % (36.0-47.0); HEMOGLOBIN 11.5 g/dL (12.0-15.5); LYMPH # 1.2 x10^3/uL (1.0-4.8); LYMPH % 13 % (24-48); MEAN CORPUSCULAR HEMOGLOBIN 24 pg (25-35); MEAN CORPUSCULAR HGB CONC 32 g/dL (31-37); MEAN CORPUSCULAR VOLUME 74 fL (79-100); MONO # 0.4 x10^3/uL (0.0-1.1); MONO % 4 % (0-9); NEUT # 7.8 x10^3/uL (1.8-7.7); NEUT % 83 % (31-73); PLATELET COUNT 308 x10^3/uL (140-400); RED CELL DISTRIBUTION WIDTH 19.4 % (11.5-14.5); WHITE BLOOD COUNT 9.4 x10^3/uL (4.0-11.0)
[2019-07-28 11:16] LABS: ALBUMIN 3.6 g/dL (3.4-5.0); ALBUMIN/GLOBULIN RATIO 1.2 (1.0-1.7); MAGNESIUM 2.1 mg/dL (1.8-2.4); TOTAL BILIRUBIN 0.4 mg/dL (0.2-1.0); TOTAL PROTEIN 6.7 g/dL (6.4-8.2)
[2019-07-28 11:31] LABS: PROTHROMBIN TIME PATIENT 15.9 SEC (11.7-14.0)
[2019-07-28] MEDS ORDERED: CIPR500T PO (12:38)
[2019-07-28 12:55] VITALS: BP 130/67
== END 2019-07-28 13:10 | disposition home or self-care (01) ==
LOC: ER 09:19
DX: R10.9 Unspecified abdominal pain (principal); R50.9 Fever, unspecified; R42 Dizziness and giddiness; J45.909 Unspecified asthma, uncomplicated; E11.9 Type 2 diabetes mellitus without complications; M79.7 Fibromyalgia; E78.00 Pure hypercholesterolemia, unspecified; I10 Essential (primary) hypertension; Z98.51 Tubal ligation status; Z98.890 Other specified postprocedural states
CPT/HCPCS: 36415; 74176; 80053; 81001; 81025; 83605; 83735; 85025; 85610; 87086; 96361; 96374; 96375; 99285; J1885; J2405; J7030

== ENCOUNTER 2019-08-12 17:31 | Inpatient (IN) | payer SELFPAY ==
[~2019-08-12] VITALS: Ht 167.6 cm; Wt 76.1 kg
[~2019-08-12 17:31] MED LIST changes: +CIPR500T PO
--- NOTE | 2019-08-12 17:52 | EKG ---
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
--- NOTE | 2019-08-12 18:12 | PHYS DOC ---
Past Medical History Past Medical History: Anemia, Asthma, Depression, Diabetes-Type II, Fibromyalgia, High Cholesterol, Hypertension, Pneumonia Past Surgical History: , Tubal ligation, Other Additional Past Surgical Histo: left ankle fx Smoking Status: Never Smoker Alcohol Use: None Drug Use: None Adult General Chief Complaint Chief Complaint: CHEST PAIN HPI HPI Patient is a 48 year old female who presents with chest pain and shortness of air that started this morning. Patient states that it's a chest tightness and a pressure that in the mid chest. Patient states she also has a pressure headache in the front of her head some blurred vision. She states she has felt this before. She states she's never been diagnosed with migraines. Patient states also been burning with urination she has right lower back pain for last 3 days. She states she's also had chills. The chest started this morning at 7:00. Patient did not take any aspirin. She does have a history of asthma and stated she took a breathing treatment at 2:00 today and it helped a small amount. She has a history of high cholesterol, hypertension, fibromyalgia, asthma, diabetes, pneumonia. She rates her pain 9 out of 10. Review of Systems Review of Systems Constitutional: fever or chills [] Eyes: blurry change in visual acuity, redness, or eye pain [] Respiratory: Denies cough. Shortness of breath [] Cardiovascular: Mid chest tightness and pressure : dysuria or denies hematuria [] Musculoskeletal: Right low back pain or joint pain [] Neurologic: headache, denies focal weakness or sensory changes [] All other systems were reviewed and found to be within normal limits, except as documented in this note. Current Medications Current Medications Current Medications Medications (Trade) Dose Ordered Sig/Sarkis Start Time Stop Time Status Last Admin Dose Admin Albuterol Sulfate (Ventolin Neb Soln) 2.5 mg 1X ONCE 08/12/19 18:15 08/12/19 18:16 DC 08/12/19 18:44 2.5 MG Aspirin (Gabriella Aspirin) 325 mg 1X ONCE 08/12/19 18:15 08/12/19 18:16 DC 08/12/19 18:51 325 MG Fentanyl Citrate (Fentanyl 2ml Vial) 50 mcg 1X ONCE 08/12/19 18:15 08/12/19 18:16 DC 08/12/19 18:51 50 MCG Prednisone (Prednisone) 50 mg 1X ONCE 08/12/19 18:15 08/12/19 18:16 DC 08/12/19 18:51 50 MG Prochlorperazine Edisylate (Compazine) 10 mg 1X ONCE 08/12/19 18:15 08/12/19 18:16 DC 08/12/19 18:51 10 MG Allergies Allergies Allergies Coded Allergies Type Severity Reaction Last Updated Verified No Known Drug Allergies 08/11/13 No Physical Exam Physical Exam Constitutional: Well developed, well nourished, no acute distress, non-toxic appearance. [] HENT: Normocephalic, atraumatic, bilateral external ears normal, oropharynx moist, no oral exudates, nose normal. [] Eyes: PERRLA, EOMI, conjunctiva normal, no discharge. [] Neck: Normal range of motion, no tenderness, supple, no stridor. [] Cardiovascular:Heart rate regular rhythm, no murmur [] Lungs & Thorax: Bilateral breath sounds clear to auscultation [] Abdomen: Bowel sounds normal, soft, no tenderness, no masses, no pulsatile masses. [] Skin: Warm, dry, no erythema, no rash. [] Back: No tenderness, no CVA tenderness. [] Extremities: No tenderness, no cyanosis, no clubbing, ROM intact, no edema. [] Neurologic: Alert and oriented X 3, normal motor function, normal sensory function, no focal deficits noted. [] Psychologic: Affect normal, judgement normal, mood normal. Normal Physical exam[] Current Patient Data Vital Signs Vital Signs Date Time Temp Pulse Resp B/P (MAP) Pulse Ox O2 Delivery O2 Flow Rate FiO2 08/12/19 18:51 16 100 Room Air 08/12/19 18:30 97.8 73 163/73 (103) 97.8 Lab Values Laboratory Tests Test 08/12/19 18:30 08/12/19 18:44 Urine Collection Type Unknown Urine Color Yellow Urine Clarity Clear Urine pH 8.5 Urine Specific [place] 1.010 Urine Protein Negative mg/dL (NEG-TRACE) Urine Glucose (UA) Negative mg/dL (NEG) Urine Ketones (Stick) Negative mg/dL (NEG) Urine Blood Small (NEG) Urine Nitrite Negative (NEG) Urine Bilirubin Negative (NEG) Urine Urobilinogen Dipstick 0.2 mg/dL (0.2 mg/dL) Urine Leukocyte Esterase Negative (NEG) Urine RBC Occ /HPF (0-2) Urine WBC 0 /HPF (0-4) Urine Squamous Epithelial Cells Many /LPF Urine Bacteria Moderate /HPF (0-FEW) White Blood Count 6.9 x10^3/uL (4.0-11.0) Red Blood Count 4.46 x10^6/uL (3.50-5.40) Hemoglobin 10.9 g/dL (12.0-15.5) L Hematocrit 33.2 % (36.0-47.0) L Mean Corpuscular Volume 74 fL (79-100) L Mean Corpuscular Hemoglobin 25 pg (25-35) Mean Corpuscular Hemoglobin Concent 33 g/dL (31-37) Red Cell Distribution Width 20.7 % (11.5-14.5) H Platelet Count 309 x10^3/uL (140-400) Neutrophils (%) (Auto) 64 % (31-73) Lymphocytes (%) (Auto) 26 % (24-48) Monocytes (%) (Auto) 10 % (0-9) H Eosinophils (%) (Auto) 0 % (0-3) Basophils (%) (Auto) 0 % (0-3) Neutrophils # (Auto) 4.5 x10^3/uL (1.8-7.7) Lymphocytes # (Auto) 1.8 x10^3/uL (1.0-4.8) Monocytes # (Auto) 0.7 x10^3/uL (0.0-1.1) Eosinophils # (Auto) 0.0 x10^3/uL (0.0-0.7) Basophils # (Auto) 0.0 x10^3/uL (0.0-0.2) Platelet Estimate Adequate (ADEQUATE) Polychromasia Slight Anisocytosis Slight Ovalocytes Occ Crenated Cell Present Prothrombin Time 13.6 SEC (11.7-14.0) Prothrombin Time INR 1.1 (0.8-1.1) Sodium Level 140 mmol/L (136-145) Potassium Level 3.5 mmol/L (3.5-5.1) Chloride Level 105 mmol/L (98-107) Carbon Dioxide Level 22 mmol/L (21-32) Anion Gap 13 (6-14) Blood Urea Nitrogen 9 mg/dL (7-20) Creatinine 0.5 mg/dL (0.6-1.0) L Estimated GFR (Cockcroft-Gault) 131.7 BUN/Creatinine Ratio 18 (6-20) Glucose Level 126 mg/dL (70-99) H Calcium Level 9.3 mg/dL (8.5-10.1) Total Bilirubin 0.3 mg/dL (0.2-1.0) Aspartate Amino Transferase (AST) 11 U/L (15-37) L Alanine Aminotransferase (ALT) 17 U/L (14-59) Alkaline Phosphatase 78 U/L (46-116) Troponin I Quantitative < 0.017 ng/mL (0.000-0.055) Total Protein 6.6 g/dL (6.4-8.2) Albumin 3.5 g/dL (3.4-5.0) Albumin/Globulin Ratio 1.1 (1.0-1.7) Laboratory Tests 08/12/19 18:44 Laboratory Tests 08/12/19 18:44 EKG EKG Sinus rhythm and no STEMI[] Interpretation Time: [address] Rizvi Radiology/Procedures Radiology/Procedures [] Impressions: [facility] [address] [place] [address] IMAGING REPORT Signed PATIENT: RENETTA GALECOUNT: [id number] : 1970 LOCATION: ER AGE: 48 SEX: F EXAM STATUS: PRE ER ORD. PHYSICIAN: AMINA RIGGS APRN REASON: chest pain PROCEDURE: PORTABLE CHEST 1V Portable AP chest. HISTORY: Chest pain AP view was taken of the chest. Lungs are clear. Heart is normal in size. There is no pleural effusion. IMPRESSION: 1. No acute chest disease. Electronically signed by: Castro Pereira MD (08/12/2019 7:00 PM) [id number] DICTATED and SIGNED BY: CASTRO PEREIRA MD DATE: 08/12/19 190 [facility] [address] [place] [address] IMAGING REPORT Signed PATIENT: RENETTA GALECOUNT: [id number] : 1970 LOCATION: ER AGE: 48 SEX: F EXAM STATUS: PRE ER ORD. PHYSICIAN: AMINA RIGGS APRN REASON: headache PROCEDURE: CT HEAD WO CONTRAST Exam: CT head INDICATION: Headache TECHNIQUE: Sequential axial images through the head were obtained without the administration of IV contrast. Comparisons: 07/23/2019 FINDINGS: No focal parenchymal lesion or hemorrhage is identified. There is no midline shift or sulcal effacement. No acute vascular territory infarction is identified. Hawk-white distinction is preserved. The ventricular system is within normal limits without compression hydrocephalus. The basal cisterns are well maintained. The visualized portions of the paranasal sinuses and mastoid air cells are well-pneumatized. No acute fractures. IMPRESSION: No acute intracranial abnormality. Exposure: One or more of the following in the visualized dose reduction techniques were utilized for this examination: 1. Automated exposure control 2. Adjustment of the MA and/or KV according to patient size Use of iterative of reconstructive technique Electronically signed by: Britta Bai MD (08/12/2019 6:49 PM) [id number] DICTATED and SIGNED BY: BRITTA ABI MD DATE: 08/12/199 Course & Med Decision Making Course & Med Decision Making Pertinent Labs and Imaging studies reviewed. (See chart for details) Alert and oriented. Speaks in full clear sentences. Patient is breathing very fast and hyperventilating causing her hands and mouth to tingle. I have educated the patient per the excellence consultant phone to slow her breathing. Skin pink warm and dry. Vital signs are within normal limits except she is breathing 30 times a minute. Lungs are clear to auscultate in all lobes. Abdomen is soft and nontender. No extremity swelling. EKG shows sinus rhythm and no STEMI. Ambulatory with a steady gait. After medications patient states that her chest pain is still there but very little in her headache is there but very little. She is able to with a steady gait states she has no dizziness. Since her chest pain and headache are slightly still there I will admit her as she does have a heart score 3. Patient admitted to Dr. Rey. [] Dragartei Disclaimer Dragon Disclaimer This electronic medical record was generated, in whole or in part, using a voice recognition dictation system. The HEART Score for CP Pts HEART Score for Chest Pain: HEART Score for Chest Pain Response (Comments) Value History Slighlty/Non-Suspicious 0 ECG Normal 0 Age >45 - < 65 1 Risk Factors >3 Risk Factors or Hx CAD 2 Troponin < Normal Limit 0 Total 3 Risk Factors: Risk Factors: DM, Current or recent (<one month) smoker, HTN, HLP, family history of CAD, obesity. Risk Scores: Score 0 - 3: 2.5% MACE over next 6 weeks - Discharge Home Score 4 - 6: 20.3% MACE over next 6 weeks - Admit for Clinical Observation Score 7 - 10: 72.7% MACE over next 6 weeks - Early Invasive Strategies NIHSS Stroke Scale NIH Stroke Scale: NIH Stroke Scale Response (Comments) Value Level of Consciousness: 0 Alert/Responsive 0 LOC Questions: 0 Answers both correctly 0 LOC Commands: 0 Performs both tasks 0 Best Gaze: 0 Normal 0 Visual: 0 No visual loss 0 Facial Palsy: 0 Normal, symmetrical 0 Motor - Left Arm 0 No drift 0 Motor - Right Arm 0 No drift 0 Motor - Left Leg 0 No drift 0 Motor: Right Leg 0 No drift 0 Limb Ataxia: 0 Absent 0 Sensory: 0 No loss 0 Best Language: 0 Normal 0 Dysathria: 0 Normal 0 Extinction and Inattention: 0 Normal 0 Total 0 Departure Departure Impression: Primary Impression: Chest pain Additional Impression: Headache Disposition: 09 ADMITTED INPATIENT Admitting Physician: EDYTA Condition: STABLE Referrals: FORREST WILDE DO (PCP) Problem Qualifiers Primary Impression: Chest pain Chest pain type: unspecified Qualified Codes: R07.9 - Chest pain, unspecified Additional Impression: Headache Headache type: unspecified Headache chronicity pattern: episodic headache Intractability: not intractable Qualified Codes: R51 - Headache AMINA RIGGS APRN Aug 12, 2019 18:12
[2019-08-12] MEDS ORDERED: predniSONE 10 MG TABLET PO ONE (18:15)
[2019-08-12] MEDS ORDERED: fentaNYL PF VIAL 100 MCG/2 ML VIAL IVP ONE (18:15)
[2019-08-12] MEDS ORDERED: ALBUTEROL SULFATE 2.5 MG/3 ML NEBU. NEB ONE (18:15)
[2019-08-12] MEDS ORDERED: PROCHLORPERAZINE 10 MG/2 ML VIAL. IV ONE (18:15)
[2019-08-12] MEDS ORDERED: ASPIRIN 325 MG TABLET PO ONE (18:15)
[2019-08-12 18:40] LABS: BILIRUBIN,URINE NEGATIVE (NEG); CLARITY,URINE CLEAR; COLOR,URINE YELLOW; NITRITE,URINE NEGATIVE (NEG); PH,URINE 8.5; PROTEIN,URINE NEGATIVE (NEG-TRACE); UROBILINOGEN,URINE 0.2 mg/dL (0.2 mg/dL)
--- NOTE | 2019-08-12 18:52 | RAD ---
Exam: CT head INDICATION: Headache TECHNIQUE: Sequential axial images through the head were obtained without the administration of IV contrast. Comparisons: 07/23/2019 FINDINGS: No focal parenchymal lesion or hemorrhage is identified. There is no midline shift or sulcal effacement. No acute vascular territory infarction is identified. Hawk-white distinction is preserved. The ventricular system is within normal limits without compression hydrocephalus. The basal cisterns are well maintained. The visualized portions of the paranasal sinuses and mastoid air cells are well-pneumatized. No acute fractures. IMPRESSION: No acute intracranial abnormality. Exposure: One or more of the following in the visualized dose reduction techniques were utilized for this examination: 1. Automated exposure control 2. Adjustment of the MA and/or KV according to patient size Use of iterative of reconstructive technique Electronically signed by: Britta Knight MD (08/12/2019 6:49 PM) [id number]
[2019-08-12 18:56] LABS: BACTERIA,URINE MODERATE /HPF (0-FEW); RBC,URINE OCC /HPF (0-2); SQUAMOUS EPITHELIAL CELL,UR MANY /LPF; WBC,URINE 0 /HPF (0-4)
--- NOTE | 2019-08-12 19:03 | RAD ---
Portable AP chest. HISTORY: Chest pain AP view was taken of the chest. Lungs are clear. Heart is normal in size. There is no pleural effusion. IMPRESSION: 1. No acute chest disease. Electronically signed by: Castro Pereira MD (08/12/2019 7:00 PM) [id number]
[2019-08-12 19:04] LABS: BASO % 0 % (0-3); EOS % 0 % (0-3); HEMATOCRIT 33.2 % (36.0-47.0); HEMOGLOBIN 10.9 g/dL (12.0-15.5); LYMPH # 1.8 x10^3/uL (1.0-4.8); LYMPH % 26 % (24-48); MEAN CORPUSCULAR HEMOGLOBIN 25 pg (25-35); MEAN CORPUSCULAR HGB CONC 33 g/dL (31-37); MEAN CORPUSCULAR VOLUME 74 fL (79-100); MONO # 0.7 x10^3/uL (0.0-1.1); MONO % 10 % (0-9); NEUT # 4.5 x10^3/uL (1.8-7.7); NEUT % 64 % (31-73); PLATELET COUNT 309 x10^3/uL (140-400); RED BLOOD COUNT 4.46 x10^6/uL (3.50-5.40); RED CELL DISTRIBUTION WIDTH 20.7 % (11.5-14.5); WHITE BLOOD COUNT 6.9 x10^3/uL (4.0-11.0)
[2019-08-12 19:08] LABS: CALCIUM 9.3 mg/dL (8.5-10.1); CREATININE 0.5 mg/dL (0.6-1.0); GFR 131.7; POTASSIUM 3.5 mmol/L (3.5-5.1)
[2019-08-12 19:09] LABS: PROTHROMBIN TIME PATIENT 13.6 SEC (11.7-14.0)
[2019-08-12 19:15] LABS: ALBUMIN 3.5 g/dL (3.4-5.0); ALBUMIN/GLOBULIN RATIO 1.1 (1.0-1.7); TOTAL BILIRUBIN 0.3 mg/dL (0.2-1.0); TOTAL PROTEIN 6.6 g/dL (6.4-8.2)
[2019-08-12 19:41] LABS: OVALOCYTES OCC; PLT ESTIMATE ADEQUATE (ADEQUATE); POLYCHROMASIA SLIGHT
[2019-08-12 19:42] LABS: ANISOCYTOSIS SLIGHT
[2019-08-12 20:23] LABS: INFLUENZA A PATIENT NEGATIVE (NEGATIVE); INFLUENZA B PATIENT NEGATIVE (NEGATIVE)
[2019-08-12] MEDS ORDERED: fentaNYL PF VIAL 100 MCG/2 ML VIAL IV PRN (20:30)
[2019-08-12] MEDS ORDERED: ACETAMINOPHEN 325 MG TABLET. PO PRN (20:30)
[2019-08-12] MEDS ORDERED: ONDANSETRON PF 4 MG/2 ML VIAL. IV PRN (20:30)
[2019-08-12 23:15] VITALS: BP 157/89
[2019-08-12] MEDS ORDERED: MONT10TA49 PO (23:26)
[2019-08-12] MEDS ORDERED: FERR-36 PO (23:27)
[2019-08-12] MEDS ORDERED: METF500T16 PO (23:27)
[2019-08-12] MEDS ORDERED: LISI2.5T PO (23:29)
[2019-08-12] MEDS ORDERED: SOY1TABL2 PO (23:31)
[2019-08-12] MEDS ORDERED: CETI10TA24 PO (23:32)
[2019-08-13 03:00] VITALS: BP 130/71
[2019-08-13 07:00] VITALS: BP 122/66
[2019-08-13] MEDS: IPRATRPIUM/ALBUTEROL 0.5/2.5MG 3 ML NEBU. NEB SCH ×3 (07:45→15:23)
--- NOTE | 2019-08-13 10:07 | PDOC2 ---
BHAKTI HOGUE STUDENT AMBASSADOR 08/13/19 1007: CARDIAC CONSULT DATE OF CONSULT Date of Consult DATE: 08/13/19 TIME: 10:03 REASON FOR CONSULT Reason for Consult: Chest pain, PATTERSON REFERRING PHYSICIAN Referring Physician: Froy SOURCE Source: Caregiver (daughter), Chart review, Patient HISTORY OF PRESENT ILLNESS HISTORY OF PRESENT ILLNESS This is a pleasant 48 yo female admitted for complains of chest pain . Complains of midchest pressure yesterday morning upon awaking. Also with some SOA and has noted self to have been wheezing. Details interpreted and explained by daughter since she speaks little Indonesian. Had some nausea. Ultimately she started having some PATTERSON and some palpitations. Yesterday she uti lized her nebulizer treatment 6 times through out the day. She did complain of bifrontal PATTERSON but no focal neuro symptoms. She does have asthma. No exertional CP and nor GLYNN prior to this. PAST MEDICAL HISTORY Cardiovascular: HTN, Hyperlipidemia Pulmonary: Asthma, Pneumonia CENTRAL NERVOUS SYSTEM: Migraine Heme/Onc: Anemia NOS Musculoskeletal: Osteoarthritis Rheumatologic: Fibromyalgia Endocrine: Diabetes (2) PAST SURGICAL HISTORY Past Surgical History: , Tubal Ligation FAMILY HISTORY Family History: Diabetes SOCIAL HISTORY Smoke: No ALCOHOL: none Drugs: None Lives: with Family CURRENT MEDICATIONS CURRENT MEDICATIONS Current Medications Medications (Trade) Dose Ordered Sig/Sarkis Route PRN Reason Start Time Stop Time Status Last Admin Dose Admin Aspirin (Gabriella Aspirin) 325 mg 1X ONCE PO 08/12/19 18:15 08/12/19 18:16 DC 08/12/19 18:51 Prochlorperazine Edisylate (Compazine) 10 mg 1X ONCE IV 08/12/19 18:15 08/12/19 18:16 DC 08/12/19 18:51 Fentanyl Citrate (Fentanyl 2ml Vial) 50 mcg 1X ONCE IVP 08/12/19 18:15 08/12/19 18:16 DC 08/12/19 18:51 Prednisone (Prednisone) 50 mg 1X ONCE PO 08/12/19 18:15 08/12/19 18:16 DC 08/12/19 18:51 Albuterol Sulfate (Ventolin Neb Soln) 2.5 mg 1X ONCE NEB 08/12/19 18:15 08/12/19 18:16 DC 08/12/19 18:44 Albuterol/ Ipratropium (Duoneb) 3 ml RTQID NEB 08/13/19 08:00 08/14/19 07:59 08/13/19 07:45 ALLERGIES ALLERGIES: Coded Allergies: No Known Drug Allergies (Unverified , 08/11/13) ROS Review of System 14 point ROS evaluated with pertinent positives noted per HPI PHYSICAL EXAM General: Alert, Oriented X3, Cooperative, No acute distress HEENT: Atraumatic, Mucous membr. moist/pink Lungs: Clear to auscultation, Normal air movement Heart: Regular rate (SR), Normal S1, Normal S2, No murmurs Abdomen: Soft, No tenderness Extremities: No cyanosis, No edema Skin: No breakdown, No significant lesion Neuro: Normal speech, Sensation intact Psych/Mental Status: Mental status NL, Mood NL MUSCULOSKELETAL: Osteoarthritic changes both hands VITALS/I&O VITALS/I&O: Vital Signs Date Time Temp Pulse Resp B/P (MAP) Pulse Ox O2 Delivery O2 Flow Rate FiO2 08/13/19 07:00 97.8 90 18 122/66 (84) 98 Room Air 97.8 I & O 08/12/19 08/12/19 08/13/19 15:00 23:00 07:00 Intake Total 0 ml Balance 0 ml LABS Lab: Laboratory Tests Test 08/12/19 18:30 08/12/19 18:44 08/12/19 19:47 08/12/19 23:35 Urine Collection Type Unknown Urine Color Yellow Urine Clarity Clear Urine pH 8.5 Urine Specific [place] 1.010 Urine Protein Negative mg/dL (NEG-TRACE) Urine Glucose (UA) Negative mg/dL (NEG) Urine Ketones (Stick) Negative mg/dL (NEG) Urine Blood Small (NEG) Urine Nitrite Negative (NEG) Urine Bilirubin Negative (NEG) Urine Urobilinogen Dipstick 0.2 mg/dL (0.2 mg/dL) Urine Leukocyte Esterase Negative (NEG) Urine RBC Occ /HPF (0-2) Urine WBC 0 /HPF (0-4) Urine Squamous Epithelial Cells Many /LPF Urine Bacteria Moderate /HPF (0-FEW) White Blood Count 6.9 x10^3/uL (4.0-11.0) Red Blood Count 4.46 x10^6/uL (3.50-5.40) Hemoglobin 10.9 g/dL (12.0-15.5) L Hematocrit 33.2 % (36.0-47.0) L Mean Corpuscular Volume 74 fL (79-100) L Mean Corpuscular Hemoglobin 25 pg (25-35) Mean Corpuscular Hemoglobin Concent 33 g/dL (31-37) Red Cell Distribution Width 20.7 % (11.5-14.5) H Platelet Count 309 x10^3/uL (140-400) Neutrophils (%) (Auto) 64 % (31-73) Lymphocytes (%) (Auto) 26 % (24-48) Monocytes (%) (Auto) 10 % (0-9) H Eosinophils (%) (Auto) 0 % (0-3) Basophils (%) (Auto) 0 % (0-3) Neutrophils # (Auto) 4.5 x10^3/uL (1.8-7.7) Lymphocytes # (Auto) 1.8 x10^3/uL (1.0-4.8) Monocytes # (Auto) 0.7 x10^3/uL (0.0-1.1) Eosinophils # (Auto) 0.0 x10^3/uL (0.0-0.7) Basophils # (Auto) 0.0 x10^3/uL (0.0-0.2) Platelet Estimate Adequate (ADEQUATE) Polychromasia Slight Anisocytosis Slight Ovalocytes Occ Crenated Cell Present Prothrombin Time 13.6 SEC (11.7-14.0) Prothrombin Time INR 1.1 (0.8-1.1) Sodium Level 140 mmol/L (136-145) Potassium Level 3.5 mmol/L (3.5-5.1) Chloride Level 105 mmol/L (98-107) Carbon Dioxide Level 22 mmol/L (21-32) Anion Gap 13 (6-14) Blood Urea Nitrogen 9 mg/dL (7-20) Creatinine 0.5 mg/dL (0.6-1.0) L Estimated GFR (Cockcroft-Gault) 131.7 BUN/Creatinine Ratio 18 (6-20) Glucose Level 126 mg/dL (70-99) H Calcium Level 9.3 mg/dL (8.5-10.1) Total Bilirubin 0.3 mg/dL (0.2-1.0) Aspartate Amino Transferase (AST) 11 U/L (15-37) L Alanine Aminotransferase (ALT) 17 U/L (14-59) Alkaline Phosphatase 78 U/L (46-116) Troponin I Quantitative < 0.017 ng/mL (0.000-0.055) < 0.017 ng/mL (0.000-0.055) Total Protein 6.6 g/dL (6.4-8.2) Albumin 3.5 g/dL (3.4-5.0) Albumin/Globulin Ratio 1.1 (1.0-1.7) Influenza Type A Antigen Negative (NEGATIVE) Influenza Type B Antigen Negative (NEGATIVE) Test 08/13/19 08:00 Glucose (Fingerstick) 167 mg/dL (70-99) H Laboratory Tests 08/12/19 18:44 Laboratory Tests 08/12/19 18:44 ASSESSMENT/PLAN ASSESSMENT/PLAN 1. Atypical chest pain: possibly from bronchospasm 2. HTN: controlled 3. HLP 4. DM2 5. Tension PATTERSON 6. Asthma exacerbation Recommendation 1. Trops nml repeat EKG 2. Consider Outpt stress test if pt would follow up. 3. Start on PPI 4. Secondary prevention measures including statin JASBIR GRAYSON MD 08/14/19 0821: CARDIAC CONSULT ASSESSMENT/PLAN ASSESSMENT/PLAN Late entry for 08/13/2019 Patient seen and examined. Agree with above nurse practitioner note. Noncardiac chest pain. Follow-up on an outpatient basis and consider stress testing if she has any persistent recurrent chest pain given her multiple risk factors. BHAKTI HOGUE APRN Aug 13, 2019 10:07 JASBIR GRAYSON MD Aug 14, 2019 08:21
[2019-08-13] MEDS ORDERED: PANTOPRAZOLE 40 MG TABLET.DR. PO ONE (10:30)
--- NOTE | 2019-08-13 10:36 | EKG ---
[facility] [address] [place] [address] Test Date: 2019-08-13 Test Time: 10:32:59 Pat Name: KIMBERLY GALE Department: Room: 260 1 Gender: F Music Writer: SHIRLENE : 1970 Requested By: BHAKTI HOGUE Order Number: [id number] Reading MD: Measurements Intervals [place] Rate: 86 P: 40 AL: 116 QRS: -13 QRSD: 90 T: 15 QT: 382 QTc: 460 Interpretive Statements SINUS RHYTHM LEFTWARD AXIS OTHERWISE NORMAL ECG RI6.02 Compared to ECG 10/25/2018 10:37:43 Left-axis deviation now present Right superior axis no longer present Myocardial infarct finding no longer present T-wave abnormality no longer present
[2019-08-13 11:00] VITALS: BP 123/66
[2019-08-13 11:21] LABS: CHOLESTEROL/HDL RATIO 2.5
[2019-08-13] MEDS ORDERED: NON FORMULARY ITEM (Albuterol Sulfate (Proair Respiclick) 1 PUFF) IH PRN (11:45)
[2019-08-13] MEDS ORDERED: ALBUTEROL SULFATE 2.5 MG/3 ML NEBU. NEB PRN (11:45)
--- NOTE | 2019-08-13 12:27 | SSS ---
ADMIT DATE: 08/13/2019 CHIEF COMPLAINT: Chest pain. HISTORY OF PRESENT ILLNESS: The patient is a pleasant, relatively healthy middle-aged white female who presented with chest pain. She rates it 7/10. She has associated weakness. This has been occurring for several days, but it got worse in the past 24 hours. She is also quite depressed because her sons in shelter. I discussed the case with ER physician and the patient's daughter who actually is an RN here. We are going to admit the patient. We are consulting Cardiology. Cardiology has already seen her and recommended an outpatient stress test. PAST MEDICAL HISTORY: Anemia, asthma, depression, diabetes, fibromyalgia, hyperlipidemia, hypertension, pneumonia, , tubal ligation, left ankle surgery. ALLERGIES: None. FAMILY HISTORY: Diabetes. SOCIAL HISTORY: She does not drink, smoke or take drugs. MEDICATIONS: Reviewed, please refer to the MRAD. REVIEW OF SYSTEMS: GENERAL: No history of weight change, weakness or fevers. SKIN: No bruising, hair changes or rashes. EYES: No blurred, double or loss of vision. NOSE AND THROAT: No history of nosebleeds, hoarseness or sore throat. HEART: She complains of a very small amount of chest pain. LUNGS: Denies cough, hemoptysis, wheezing or shortness of breath. GASTROINTESTINAL: Denies changes in appetite, nausea, vomiting, diarrhea or constipation. GENITOURINARY: No history of frequency, urgency, hesitancy or nocturia. NEUROLOGIC: Denies history of numbness, tingling, tremor or weakness. PSYCHIATRIC: She complains of depression. ENDOCRINE: No history of heat or cold intolerance, polyuria or polydipsia. EXTREMITIES: Denies muscle weakness, joint pain, pain on walking or stiffness. PHYSICAL EXAMINATION: VITALS: Within normal limits and are stable. GENERAL: No apparent distress. Alert and oriented. HEENT: Normal cephalic atraumatic, external auditory canals are patent. EYES: Extraocular muscles are intact, pupils are equally round and reactive to light and accommodation. MUSKULOSKELETAL: Well developed, well nourished, good range of motion. ENDOCRINE: No thyromegaly was palpated. LYMPHATICS: No cervical chain or axillary nodes were noted. HEMATOPOIETIC: No bruising. NECK: Supple, no JVD, no thyromegaly was noted. LUNGS: Clear to auscultation in all lung reynolds without rhonchi or wheezing. HEART: RRR, S1, S2 present. Peripheral pulses intact, no obvious murmurs were noted. ABDOMEN: Soft, nontender. Positive bowel sounds no organomegaly, normal bowel sounds. EXTREMITIES: Without any cyanosis, clubbing, or edema. Pedal pulses intact, Homans sign is negative. NEUROLOGIC: Normal speech, normal tone. A & O x3, moves all extremities, no obvious focal deficits. PSYCHIATRIC: She is depressed. SKIN: No ulcerations or rashes, good skin turgor, no jaundice. VASCULAR: Good capillary refill, neurovascular bundle appears to be intact. LABORATORY DATA: Troponins are all negative at 0.017. Cholesterol is slightly high at 208. Hemoglobin is 10.9. ASSESSMENT AND PLAN: Atypical chest pain. If okay with Cardiology, we will go ahead and discharge and have her see her primary care doctor in a week and resume her home meds. DISPOSITION: Home. ACTIVITY: As tolerated. DIET: Low sodium. MEDICATIONS: Please see the MRAD. TOTAL TIME: 31 minutes. RAMAKRISHNA SAUCEDA DO DR: MENDEZ/elias JOB#: [id number] / [id number]
[2019-08-13] MEDS ORDERED: DULoxetine HCL 30 MG CAPSULE.DR PO SCH (13:00)
[2019-08-13] MEDS ORDERED: NON FORMULARY ITEM (Albuterol Sulfate (Ventolin Hfa Inhaler) 2 PUFF) INH SCH (13:00)
[2019-08-13] MEDS ORDERED: LISINOPRIL 5 MG TABLET. PO SCH (13:00)
[2019-08-13] MEDS ORDERED: FERROUS SULFATE 325 MG TABLET. PO SCH (13:00)
[2019-08-13] MEDS ORDERED: CETIRIZINE HCL 10 MG TABLET. PO SCH (13:00)
--- NOTE | 2019-08-13 14:04 | NUR ---
SS following for discharge planning. SS reviewed pt chart. Pt is self pay pt. HCF[facility] following for self pay status. Pt is from home with spouse and is currently on room air. Discharge order on the chart for home with self care. SS will continue to follow for discharge planning.
[2019-08-13 15:00] VITALS: BP 130/68
[2019-08-13] MEDS ORDERED: ATOR10TA PO (16:38)
[2019-08-13] MEDS ORDERED: metFORMIN 500 MG TABLET PO SCH (17:00)
[2019-08-13] MEDS ORDERED: ATORVASTATIN CALCIUM 20 MG TABLET PO SCH (21:00)
[2019-08-13] MEDS ORDERED: MONTELUKAST SODIUM 10 MG TABLET. PO SCH (21:00)
[2019-08-14] MEDS ORDERED: PANTOPRAZOLE 40 MG TABLET.DR. PO SCH (07:30)
[2019-08-14] MEDS ORDERED: [UNRECOGNIZED DRUG - OTHER] PO SCH (09:00)
== END 2019-08-13 17:56 | disposition home or self-care (01) | DRG 313 ==
LOC: ER 17:31 → 2 SOUTH 20:13
PROVIDERS: ADMIT Internal Medicine; ATTEND Internal Medicine
DX: R07.89 Other chest pain (principal); J45.901 Unspecified asthma with (acute) exacerbation; I10 Essential (primary) hypertension; E11.9 Type 2 diabetes mellitus without complications; E78.00 Pure hypercholesterolemia, unspecified; F32.9 Major depressive disorder, single episode, unspecified; E78.5 Hyperlipidemia, unspecified; G44.209 Tension-type headache, unspecified, not intractable; G43.909 Migraine, unspecified, not intractable, without status migrainosus; M19.90 Unspecified osteoarthritis, unspecified site; M79.7 Fibromyalgia; Z98.891 History of uterine scar from previous surgery; Z83.3 Family history of diabetes mellitus
CPT/HCPCS: 36415; 70450; 71045; 80053; 80061; 81001; 82962; 84484; 85025; 85610; 87086; 87804; 93005; 94640; 94760; 96374; 96375; J0780; J3010; J7512; J7613; J7620; 99285-25; G0378

== ENCOUNTER 2020-07-12 01:10 | Emergency (ER) | payer SELFPAY ==
[~2020-07-12] VITALS: Ht 162.6 cm; Wt 86.4 kg
[~2020-07-12 01:10] MED LIST changes: +ATOR10TA PO; +CETI10TA74 PO; +FERR-36 PO; +LISI2.5T PO; +METF-658 PO; -METF500T11 PO; +METF500T16 PO; +MONT10TA49 PO; +SOY1TABL2 PO
[2020-07-12] MEDS ORDERED: IV NORMAL SALINE 1000ML BAG 1,000 ML IV ONE (01:30)
[2020-07-12] MEDS ORDERED: MORPHINE SULFATE 10 MG/ML VIAL. IV ONE (01:45)
[2020-07-12 01:55] LABS: BASO % 1 % (0-3); EOS # 0.2 x10^3/uL (0.0-0.7); EOS % 3 % (0-3); HEMATOCRIT 36.5 % (36.0-47.0); HEMOGLOBIN 12.6 g/dL (12.0-15.5); LYMPH # 2.6 x10^3/uL (1.0-4.8); LYMPH % 39 % (24-48); MEAN CORPUSCULAR HEMOGLOBIN 31 pg (25-35); MEAN CORPUSCULAR HGB CONC 35 g/dL (31-37); MEAN CORPUSCULAR VOLUME 88 fL (79-100); MONO # 0.6 x10^3/uL (0.0-1.1); MONO % 9 % (0-9); NEUT # 3.3 x10^3/uL (1.8-7.7); NEUT % 49 % (31-73); PLATELET COUNT 274 x10^3/uL (140-400); RED BLOOD COUNT 4.15 x10^6/uL (3.50-5.40); RED CELL DISTRIBUTION WIDTH 13.4 % (11.5-14.5); WHITE BLOOD COUNT 6.8 x10^3/uL (4.0-11.0)
[2020-07-12 02:02] LABS: GFR 58.9; POTASSIUM 3.9 mmol/L (3.5-5.1)
--- NOTE | 2020-07-12 02:18 | ED.ADGEN ---
Past Medical History Past Medical History: Diabetes-Type II Past Surgical History: Tubal ligation, Other Additional Past Surgical Histo: L. ANKLE Smoking Status: Never Smoker Alcohol Use: None Drug Use: None General Adult EDM: Chief Complaint: VAGINAL BLEEDING HPI: HPI: Patient is a 49-year-old female who presents to the emergency room complaining of vaginal bleeding. Patient has a long history of heavy vaginal bleeding. Bleeding started yesterday evening. She states that she feels generalized weakness. Bleeding has not increased over the last 24 hours but has remained steady. She has had multiple blood clots. She has been treated with some kind of device to help with bleeding and follows with an [facility] outpatient. She denies any chest pain. Review of Systems: Review of Systems: Complete ROS is negative unless otherwise documented in HPI Current Medications: Current Medications Medications (Trade) Dose Ordered Sig/Sarkis Start Time Stop Time Status Last Admin Dose Admin Morphine Sulfate (Morphine Sulfate) 5 mg 1X ONCE 07/12/20 01:45 07/12/20 01:46 DC 07/12/20 01:58 5 MG Sodium Chloride 1,000 ml @ 1,000 mls/hr 1X ONCE 07/12/20 01:30 07/12/20 02:29 DC 07/12/20 01:56 1,000 MLS/HR Allergies: Allergies: Allergies Coded Allergies Type Severity Reaction Last Updated Verified No Known Drug Allergies 04/01/19 No Physical Exam: PE: General: Awake, alert, NAD. Well Nourished, well hydrated. Cooperative HEENT: Atraumatic, EOMI, PERRL, airway patent, moist oral mucosa Neck: Supple, trachea midline Respiratory: CTA bilaterally, normal effort, no wheezing/crackles CV: RRR, no murmur, cap refill <2 GI: Soft, nondistended, nontender, no masses MSK: No obvious deformities Skin: Warm, dry, intact Neuro: A&O x3, speech NL, sensory and motor grossly intact, no focal deficits Psych: Normal affect, normal mood, not suicidal or homicidal Current Patient Data: Labs: Laboratory Tests Test 07/12/20 01:42 07/12/20 02:07 White Blood Count 6.8 x10^3/uL (4.0-11.0) Red Blood Count 4.15 x10^6/uL (3.50-5.40) Hemoglobin 12.6 g/dL (12.0-15.5) Hematocrit 36.5 % (36.0-47.0) Mean Corpuscular Volume 88 fL (79-100) Mean Corpuscular Hemoglobin 31 pg (25-35) Mean Corpuscular Hemoglobin Concent 35 g/dL (31-37) Red Cell Distribution Width 13.4 % (11.5-14.5) Platelet Count 274 x10^3/uL (140-400) Neutrophils (%) (Auto) 49 % (31-73) Lymphocytes (%) (Auto) 39 % (24-48) Monocytes (%) (Auto) 9 % (0-9) Eosinophils (%) (Auto) 3 % (0-3) Basophils (%) (Auto) 1 % (0-3) Neutrophils # (Auto) 3.3 x10^3/uL (1.8-7.7) Lymphocytes # (Auto) 2.6 x10^3/uL (1.0-4.8) Monocytes # (Auto) 0.6 x10^3/uL (0.0-1.1) Eosinophils # (Auto) 0.2 x10^3/uL (0.0-0.7) Basophils # (Auto) 0.0 x10^3/uL (0.0-0.2) Sodium Level 137 mmol/L (136-145) Potassium Level 3.9 mmol/L (3.5-5.1) Chloride Level 101 mmol/L (98-107) Carbon Dioxide Level 24 mmol/L (21-32) Anion Gap 12 (6-14) Blood Urea Nitrogen 22 mg/dL (7-20) H Creatinine 1.0 mg/dL (0.6-1.0) Estimated GFR (Cockcroft-Gault) 58.9 Glucose Level 166 mg/dL (70-99) H Calcium Level 9.0 mg/dL (8.5-10.1) POC Urine HCG, Qualitative Hcg negative (Negative) Laboratory Tests 07/12/20 01:42 Laboratory Tests 07/12/20 01:42 Vital Signs: Vital Signs Date Time Temp Pulse Resp B/P (MAP) Pulse Ox O2 Delivery O2 Flow Rate FiO2 07/12/20 02:47 101 172/80 (110) 98 Room Air 07/12/20 01:25 97.4 16 97.4 EKG: EKG: [] Heart Score: Risk Factors: Risk Factors: DM, Current or recent (<one month) smoker, HTN, HLP, family history of CAD, obesity. Risk Scores: Score 0 - 3: 2.5% MACE over next 6 weeks - Discharge Home Score 4 - 6: 20.3% MACE over next 6 weeks - Admit for Clinical Observation Score 7 - 10: 72.7% MACE over next 6 weeks - Early Invasive Strategies Radiology/Procedures: Radiology/Procedures: [] Course & Med Decision Making: Course & Med Decision Making Pertinent Labs and Imaging studies reviewed. (See chart for details) Patient is a 49-year-old female who presents to the emergency room with a long history of dysfunctional uterine bleeding. Patient is overall well-appearing. Vitals are normal. CBC shows a normal hemoglobin. Patient does not appear to be hemorrhaging at this time. I have recommended that she follows up with [facility]. Given her age I do not feel it is appropriate to give her hormones. Patient's test results and vitals while in the ED were fully reviewed and discussed with the patient. Patient is stable and at this time does not need admission to the hospital. We have discussed strict return precautions and the importance of following up with their Primary Care Physician. Patient stated understanding and was given an opportunity to ask any questions. Patient is in agreement with plan. Karol Disclaimer: Karol Disclaimer: This electronic medical record was generated, in whole or in part, using a voice recognition dictation system. Departure Departure Impression: Primary Impression: Vaginal bleeding Disposition: 01 DC HOME SELF CARE/HOMELESS Condition: STABLE Referrals: FORREST WILDE DO (PCP) Patient Instructions: Uterine Bleeding, Dysfunctional LENIN ZIMMERMAN MD Jul 12, 2020 02:18
[2020-07-12 02:47] VITALS: BP 172/80
== END 2020-07-12 02:50 | disposition home or self-care (01) ==
LOC: ER 01:10 → MERGE 01:10 → ER 02:50
DX: N93.8 Other specified abnormal uterine and vaginal bleeding (principal); R53.1 Weakness; E11.9 Type 2 diabetes mellitus without complications; Z98.51 Tubal ligation status; Z98.890 Other specified postprocedural states
CPT/HCPCS: 36415; 80048; 81025; 85025; 96361; 96374; 99283; J2270; J7030

== ENCOUNTER 2020-07-13 12:33 | Emergency (ER) | payer SELFPAY ==
[~2020-07-13] VITALS: Ht 167.6 cm; Wt 90.0 kg
[2020-07-13 13:44] VITALS: BP 142/71
[2020-07-13 14:33] LABS: BASO % 0 % (0-3); EOS # 0.2 x10^3/uL (0.0-0.7); EOS % 2 % (0-3); HEMATOCRIT 39.3 % (36.0-47.0); HEMOGLOBIN 13.3 g/dL (12.0-15.5); LYMPH # 2.4 x10^3/uL (1.0-4.8); LYMPH % 38 % (24-48); MEAN CORPUSCULAR HEMOGLOBIN 30 pg (25-35); MEAN CORPUSCULAR HGB CONC 34 g/dL (31-37); MEAN CORPUSCULAR VOLUME 89 fL (79-100); MONO # 0.5 x10^3/uL (0.0-1.1); MONO % 8 % (0-9); NEUT # 3.3 x10^3/uL (1.8-7.7); NEUT % 52 % (31-73); PLATELET COUNT 310 x10^3/uL (140-400); RED CELL DISTRIBUTION WIDTH 13.4 % (11.5-14.5); WHITE BLOOD COUNT 6.5 x10^3/uL (4.0-11.0)
[2020-07-13 14:36] LABS: CALCIUM 9.4 mg/dL (8.5-10.1); CREATININE 0.6 mg/dL (0.6-1.0); GFR 106.3
[2020-07-13] MEDS ORDERED: ACETAMINOPHEN 500 MG TABLET PO ONE (15:45)
[2020-07-13] MEDS ORDERED: medroxyPROGESTERone IM 150 MG/ML VIAL. IM ONE (16:00)
--- NOTE | 2020-07-13 16:48 | PHYS DOC ---
Past Medical History Past Medical History: Arthritis, Diabetes-Type II, Fibromyalgia Additional Past Medical Histor: colitis, SEASONAL ALLERGIES, VAGINAL BLEEDING, COVID Past Surgical History: Tubal ligation, Other Additional Past Surgical Histo: L. ANKLE Smoking Status: Former Smoker Alcohol Use: None Drug Use: None General Adult EDM: Chief Complaint: VAGINAL PROBLEM HPI: HPI: Patient is a 49 year old female who presents to the emergency department complaining of vaginal bleeding. Patient states that she has had a long history abnormal uterine bleeding over the past several years. Patient states that usually they give her a shot of something and it just goes away. Patient states that she has a patient of the local clinic who is attempting to get her an appointment to have a uterine ablation. Patient reports that she was here yesterday for the same thing stating that her bleeding started the day before. However the patient states that since she is unable to see her OB doctor and get her ablation sooner, she thinks that may be now her bleeding started approximately 2 weeks ago. Patient states that she has been wearing adult diapers and has been changing them every 3 hours however her bleeding has seemed to stop when she arrived at the emergency room today. Patient states that she does have aches and pains that go on and off for the past several years with her uterine bleeding. Patient states that at her last OB appointment they placed an IUD to help with her bleeding but it did not seem to help. Patient denies any chest pains or shortness of breath. Review of Systems: Review of Systems: 14 body systems of review of systems have been reviewed. See HPI for pertinent positives and negative responses, otherwise all other systems are negative, nonpertinent or noncontributory. Heart Score: Risk Factors: Risk Factors: DM, Current or recent (<one month) smoker, HTN, HLP, family history of CAD, obesity. Risk Scores: Score 0 - 3: 2.5% MACE over next 6 weeks - Discharge Home Score 4 - 6: 20.3% MACE over next 6 weeks - Admit for Clinical Observation Score 7 - 10: 72.7% MACE over next 6 weeks - Early Invasive Strategies Current Medications: Current Medications Medications (Trade) Dose Ordered Sig/Sarkis Start Time Stop Time Status Last Admin Dose Admin Acetaminophen (Tylenol) 1,000 mg 1X ONCE 07/13/20 15:45 07/13/20 15:47 DC 07/13/20 15:51 1,000 MG Medroxyprogesterone Acetate (Depo-Provera Im) 150 mg 1X ONCE 07/13/20 16:00 07/13/20 16:01 DC 07/13/20 16:05 150 MG Allergies: Allergies: Allergies Coded Allergies Type Severity Reaction Last Updated Verified No Known Drug Allergies 08/11/13 No Physical Exam: PE: Constitutional: Well developed, well nourished, no acute distress, non-toxic appearance. HENT: Normocephalic, atraumatic, bilateral external ears normal, oropharynx moist, no oral exudates, nose normal. Eyes: PERRLA, EOMI, conjunctiva normal, no discharge. Neck: Normal range of motion, no tenderness, supple, no stridor. Cardiovascular:Heart rate regular rhythm, no murmur Lungs & Thorax: Bilateral breath sounds clear to auscultation Abdomen: Bowel sounds normal, soft, no tenderness, no masses, no pulsatile masses. Skin: Warm, dry, no erythema, no rash. Back: No tenderness, no CVA tenderness. Extremities: No tenderness, no cyanosis, no clubbing, ROM intact, no edema. Neurologic: Alert and oriented X 3, normal motor function, normal sensory function, no focal deficits noted. Psychologic: Affect normal, judgement normal, mood normal. Current Patient Data: Labs: Laboratory Tests Test 07/13/20 13:20 White Blood Count 6.5 x10^3/uL (4.0-11.0) Red Blood Count 4.40 x10^6/uL (3.50-5.40) Hemoglobin 13.3 g/dL (12.0-15.5) Hematocrit 39.3 % (36.0-47.0) Mean Corpuscular Volume 89 fL (79-100) Mean Corpuscular Hemoglobin 30 pg (25-35) Mean Corpuscular Hemoglobin Concent 34 g/dL (31-37) Red Cell Distribution Width 13.4 % (11.5-14.5) Platelet Count 310 x10^3/uL (140-400) Neutrophils (%) (Auto) 52 % (31-73) Lymphocytes (%) (Auto) 38 % (24-48) Monocytes (%) (Auto) 8 % (0-9) Eosinophils (%) (Auto) 2 % (0-3) Basophils (%) (Auto) 0 % (0-3) Neutrophils # (Auto) 3.3 x10^3/uL (1.8-7.7) Lymphocytes # (Auto) 2.4 x10^3/uL (1.0-4.8) Monocytes # (Auto) 0.5 x10^3/uL (0.0-1.1) Eosinophils # (Auto) 0.2 x10^3/uL (0.0-0.7) Basophils # (Auto) 0.0 x10^3/uL (0.0-0.2) Sodium Level 140 mmol/L (136-145) Potassium Level 4.0 mmol/L (3.5-5.1) Chloride Level 103 mmol/L (98-107) Carbon Dioxide Level 25 mmol/L (21-32) Anion Gap 12 (6-14) Blood Urea Nitrogen 19 mg/dL (7-20) Creatinine 0.6 mg/dL (0.6-1.0) Estimated GFR (Cockcroft-Gault) 106.3 Glucose Level 156 mg/dL (70-99) H Calcium Level 9.4 mg/dL (8.5-10.1) Laboratory Tests 07/13/20 13:20 Laboratory Tests 07/13/20 13:20 Vital Signs: Vital Signs Date Time Temp Pulse Resp B/P (MAP) Pulse Ox O2 Delivery O2 Flow Rate FiO2 07/13/20 13:44 90 142/71 (94) 96 Room Air 07/13/20 12:56 98.1 16 98.1 EKG: EKG: [] Radiology/Procedures: Radiology/Procedures: [] Course & Med Decision Making: Course & Med Decision Making Pertinent Labs and Imaging studies reviewed. (See chart for details) 49-year-old female vital signs reviewed and stable, patient complains of vaginal bleeding however during exam there was no apparent vaginal bleeding. Patient was seen here yesterday for same complaint, patient is labs remained within normal limits and equivocal. Discussed case with ADMINISTR[facility]IVE ASSISTANT specialist Dr. Thakur who recommended the patient be given 150 mg Provera IM. Discussed this with patient who was amenable to receiving the Provera shot however the patient states that she wants to have her ablation done today. Explained to patient that the emergency department does not do uterine ablations. Patient is to follow-up with with her OB clinic and keep her OB clinic appointments. Patient gave verbal understanding of discharge home instructions, return to ER concerns, was discharged home without incident. Impressions: 1. Abnormal uterine bleeding Karol Disclaimer: Karol Disclaimer: This electronic medical record was generated, in whole or in part, using a voice recognition dictation system. Departure Departure Impression: Primary Impression: Abnormal uterine bleeding Disposition: 01 DC HOME SELF CARE/HOMELESS Condition: GOOD Referrals: UNKNOWN PCP NAME (PCP) Additional Instructions: Please keep your OB appointments. Return emergency department for worsening symptoms or other concerns. EMERGENCY DEPARTMENT GENERAL DISCHARGE INSTRUCTIONS Thank you for coming to [facility] Emergency Department (ED) tod ay and trusting us with you care. We trust that you had a positive experience in our Emergency Department. If you wish to speak to the department management, you may call the Director at [phone]. YOUR FOLLOW UP INSTRUCTIONS ARE FOLLOWS: 1. Do you have a private Doctor? If you do not have a private doctor, please ask for a resource list of physicians or clinics that may be able to assist you with follow up care. 2. The Emergency Physicain has interpreted your x-rays. The X-Ray specialist will also review them. If there is a change in the findings, you will be notified in 48 hours when at all possible. 3. A lab test or culture has been done, your results will be reviewed and you will be notified if you need a change in treatment. ADDITIONAL INSTRUCTIONS AND INFORMATION: 1. Your care today has been supervised by a physician who is specially trained in emergency care. Many problems require more than one evaluation for a complete diagnosis and treatment. We recommend that you schedule your follow up appointment as recommended to ensure complete treatment of you illness or injury. If you are unable to obtain follow up care and continue to have a problem, or if your condition worsens, we recommend that you return to the ED. 2. We are not able to safely determine your condition over the phone nor are we able to give sound medical advice over the phone. For these safety reasons, if you call for medical advice we will ask you to come to the ED for further evaluation. 3. If you have any questions regarding these discharge instructions please call the ED at [phone]. SAFETY INFORMATION: In the interest of safety, wellness, and injury prevention; we encourage you to wear your sealbelt, if you smoke; quite smoking, and we encourage family to use a protective helmet for bicycling and other sporting events that present an increased risk for head injury. IF YOUR SYMPTOMS WORSEN OR NEW SYMPTOMS DEVELOP, OR YOU HAVE CONCERNS ABOUT YOUR CONDITION; OR IF YOUR CONDITION WORSENS WHILE YOU ARE WAITING FOR YOUR FOLLOW UP APPOINTM ENT; EITHER CONTACT YOUR PRIMARY CARE DOCTOR, THE PHYSICIAN WHOSE NAME AND NUMBER YOU WERE GIVEN, OR RETURN TO THE ED IMMEDIATELY. BERKLEY BARON APRN Jul 13, 2020 16:48
== END 2020-07-13 17:09 | disposition home or self-care (01) ==
LOC: ER 12:33
DX: N93.9 Abnormal uterine and vaginal bleeding, unspecified (principal); E11.9 Type 2 diabetes mellitus without complications; Z98.51 Tubal ligation status; Z87.891 Personal history of nicotine dependence
CPT/HCPCS: 36415; 80048; 85025; 96372; 99283; J1050

== ENCOUNTER → 2020-08-26 | Outpatient (CLI) | payer OTHER ==
[~2020-08-26] MED LIST changes: -CIPR500T PO; +CIPR500T2 PO; +REGADENOSON 0.4 MG/5 ML DISP.SYRIN. IV ONE
--- NOTE | 2020-08-26 19:26 | RAD ---
MR#: [id number] Date of Study: 08/26/2020 Ordering Physician: LUCIEN BEDOLLA, Referring Physician: LEXX PURI Tech: RT Rodney Rodriguez) (N) APPROVED REPORT Test Type: Pharmacological Stress Nurse/Tech: Xochitl Paul RN Test Indications: Chest pain Cardiac History: Hypertension, Diabetes Medications: See Electronic Medical Record Medical History: See Electronic Medical Record Resting ECG: SR Resting Heart Rate: 79 bpm Resting Blood Pressure: 120/56mmHg Pretest Chest Pain: No chest pain Nurse/Tech Notes S1,S2 and lungs clear to auscultation. Consent: The procedure was explained to the patient in lay terms. Informed consent was witnessed. Anuj eout was entered into [employer]. History and Stress Test performed by RT Niraj (Abhi) (N) Pharm. Details Pharmacologic stress testing was performed using 0.4mg per 5ml of regadenoson given intravenously ove r 7-10 seconds. Stress Symptoms Nausea and headache POST EXERCISE Reason for Termination: Infusion complete Target HR: Yes Max HR: 192 bpm 133% of Maximum Predicted HR: 144 bpm Max Blood Pressure: 141/62mmHg Blood Pressure response to exercise: Normal blood pressure response during stress. Heart Rate response to exercise: WNL Chest Pain: No. Arrhythmia: No. ST Change: No. INTERPRETATION Stress EKG Conclusion: No evidence of stress induced EKG changes. Imaging Protocol IMAGE PROTOCOL: Rest Tc-99m/stress Tc-99m 1 day Rest: Stress: Viability: Radiopharm.Tc99m [id number] Sestamibi Jxwq82oTn 32mCi Duration 15min. 10min. Img Date 08/26/2020 08/26/2020 Inj-Img Xdsp82ucu. 60min. Rest Admin Site:IV - Left WristAdministrator:RT Rodney Healy)(N) Stress Admin Site: IV - Left WristAdministrator: RT Rodney Rodriguez)(N) STRESS DATA End Diast. Vol.91.0mlAv. Heart Rate93.0bpm End Syst. Vol.18.0mlCO Index BSA0.0L/min Myocardial Kqbd438.0gEject. Yonbpyoo03.0% Stress Rates Pk. Fill Rate3.47EDV/secLVtime Pk. Fill 188.33msec Pk. Empty Rate4.93ESV/secLVtime Pk. Nkmnd517.89msec 1/3 Pk. Fill1.39EDV/sec Stress Scores Regional WT0.00Summed WT0.00 Regional WM0.00Summed WM0.00 The rest and stress images show normal perfusion, normal contraction and thickening. LV Perf. Quant 17 Seg. SSS1.00 17 Seg. SRS9.00 17 Seg. SDS0.00 Stress Defect Extent (% LAD)0.00Rest Defect Extent (% LAD)9.40Rev. Defect Extent (% LAD)0.00 Stress Defect Extent (% LCX) 16.30Rest Defect Extent (% LCX)35.00Rev. Defect Extent (% LCX)0.00 Stress Defect Extent (% RCA)0.00Rest Defect Extent (% RCA)2.20Rev. Defect Extent (% RCA)0.00 Stress Defect Extent (% COBY)4.80Rest Defect Extent (% COBY)15.90Rev. Defect Extent (% COBY)0.00 Other Information Quality:Average Risk Assessment: Low Risk Conclusion 1. No evidence of EKG changes with stress testing. 2. Normal perfusion at stress/rest. 3. Low risk study. 4. EF > 60%. Signed by : Christos Tolbert, Electronically Approved : 08/26/2020 19:25:52
--- NOTE | 2020-08-26 19:30 | CARD ---
MR#: [id number] Date of Study: 08/26/2020 Ordering Physician: LUCIEN BEDOLLA, Referring Physician: LUCIEN BEDOLLA, Tech: Jasmin Amaya KATHY APPROVED REPORT EXAM: Two-dimensional and M-mode echocardiogram with Doppler and color Doppler. Other Information Quality : Good INDICATION Chest Pain 2D DIMENSIONS RVDd3.0 (2.9-3.5cm)Left Atrium(2D)3.6 (1.6-4.0cm) IVSd0.9 (0.7-1.1cm)Aortic Root(2D)2.3 (2.0-3.7cm) LVDd4.6 (3.9-5.9cm)LVOT Diameter2.0 (1.8-2.4cm) PWd1.0 (0.7-1.1cm)LVDs3.0 (2.5-4.0cm) FS (%) 34.8 %SV61.3 ml LVEF(%)64.2 (>50%) Aortic Valve AoV Peak Son.140.0cm/sAoV VTI22.2cm AO Peak GR.7.8mmHgLVOT Peak Son.106.3cm/s AO Mean GR.4mmHgAVA (VMAX)2.49cm2 JEYSON (VTI)3.10cm2 Mitral Valve MV E Csqrlktr77.2cm/sMV DECEL CWNH957to MV A Yxvybxug81.5cm/sE/A Ratio0.7 Tricuspid Valve TR P. Swuxfund319nc/sRAP BXUFEDWQ4mmXc TR Peak Gr.31zwGdHDGS89uzIg Pulmonary Vein S1 Pwoshagl00.6cm/sD2 Tskvrdph28.5cm/s LEFT VENTRICLE The left ventricle is normal size. There is normal left ventricular wall thickness. The left ventricu lar systolic function is normal and the ejection fraction is within normal range. The Ejection Fracti on is 55-60%. There is normal LV segmental wall motion. Transmitral Doppler flow pattern is Grade I-a bnormal relaxation pattern. RIGHT VENTRICLE The right ventricle is normal size. The right ventricular systolic function is normal. ATRIA The left atrium size is normal. The right atrium size is normal. The interatrial septum is intact wit h no evidence for an atrial septal defect or patent foramen ovale as noted on 2-D or Doppler imaging. AORTIC VALVE The aortic valve is normal in structure and function. Doppler and Color Flow revealed no significant aortic regurgitation. There is no significant aortic valvular stenosis. MITRAL VALVE The mitral valve is calcified but opens well. There is no evidence of mitral valve prolapse. There is no mitral valve stenosis. Doppler and Color-flow revealed trace mitral regurgitation. TRICUSPID VALVE The tricuspid valve is normal in structure and function. Doppler and Color Flow revealed trace tricus pid regurgitation. The PA pressure was estimated at 27 mmHg. There is no tricuspid valve stenosis. PULMONIC VALVE The pulmonic valve is not well visualized. Doppler and Color Flow revealed trace to mild pulmonic bekah vular regurgitation. There is no pulmonic valvular stenosis. GREAT VESSELS The aortic root is normal in size. The ascending aorta is normal in size. The IVC is normal in size a nd collapses >50% with inspiration. PERICARDIAL EFFUSION There is no evidence of significant pericardial effusion. Critical Notification Critical Value: No <Conclusion> The left ventricular systolic function is normal and the ejection fraction is within normal range. Th e Ejection Fraction is 55-60%. There is normal LV segmental wall motion. Signed by : Christos Tolbert, Electronically Approved : 08/26/2020 19:30:17
== END ==
LOC: NM 11:10
PROVIDERS: ATTEND Internal Medicine Cardiovascular Disease
DX: I08.8 Other rheumatic multiple valve diseases (principal); I10 Essential (primary) hypertension
CPT/HCPCS: 78452; 93017; 93306; A9500; J2785